=== PATIENT | female | born 1955 | race Caucasian/White ===

== ENCOUNTER 2017-01-05 01:05 | Emergency (ER) | payer MEDICARE, MEDICAID ==
[~2017-01-05] VITALS: Ht 162.6 cm; Wt 66.8 kg
[~2017-01-05 01:05] MED LIST: ASA325 PO; DIAZ5TAB PO; LORA-303 PO; OMEP1CAP24 PO; OMEP1CAP25 PO; OXYC5TAB72 PO; PHEN-684 PO; SERT100T PO; SIMV20TA4 PO; TEMA30CA PO
[2017-01-05 01:10] VITALS: BP 121/75; PULSE 102; RESP 16; O2SAT 97
--- NOTE | 2017-01-05 01:24 | ED.REPORT ---
HPI-General Illness Date of Service Jan 05, 2017 ED Provider: Dr. Alex Girard M.D. A 61 year old female with a medical history including migraines and pneumonia s/ p left hip surgery presents to the ED with trouble breathing onset ten days ago. Associated symptoms include non-productive cough, wheeze, shortness of breath, pleuritic chest pain, right ear pain, bilateral leg edema, headache ( pressure), and left hip pain after a recent ground level fall. The patient was recently on prednisone, with no relief. Nursing Notes Stated Complaint: MEDICATION/EAR AND LEG PAIN Chief Complaint: General Complaint Nursing Notes Reviewed: Yes Allergies: Coded Allergies: hydrocodone (Verified Allergy, Mild, rash, 01/05/17) ketorolac (Verified Allergy, Mild, restless legs, 01/05/17) amoxicillin (Verified Allergy, Unknown, diarrhea, 03/13/14) Scheduled Aspirin-Expunged Drug, Do Not Renew! (Aspirin-Expunged Drug, Do Not Renew!) 325 Mg Tablet 162 MG PO DAILY Cefuroxime Axetil (Cefuroxime) 500 Mg Tablet 500 MG PO BID Diazepam (Valium) 5 Mg Tablet 5 MG PO BID Lorazepam-Expunged Drug, Do Not Renew! (Lorazepam-Expunged Drug, Do Not Renew!) 1 Mg Tablet 2 MG PO PRN PANIC ATTACKS Omeprazole/Sodium Bicarb 20-1100 mg (Omeprazole/Sodium Bicarb 20-1100 mg) 1 Each Capsule 1 EACH PO DAILYAC Omeprazole/Sodium Bicarb 40-1100 mg (Omeprazole/Sodium Bicarb 40-1100 mg) 1 Each Capsule 1 EACH PO BID Phenazopyridine (Pyridium) 200 Mg Tablet 200 MG PO TIDPC Prednisone (PredniSONE) 20 Mg Tablet 60 MG PO DAILY Sertraline HCl (Zoloft) 100 Mg Tablet 200 MG PO DAILY Simvastatin (Simvastatin) 20 Mg Tablet 20 MG PO PM Temazepam-Expunged Drug, Do Not Renew! (Temazepam-Expunged Drug, Do Not Renew!) 30 Mg Capsule 30 MG PO HS Scheduled PRN Albuterol HFA (Proair HFA) 8.5 Gm Hfa.aer.ad 2 PUFFS INHALATION Q4H PRN PRN For Cough Benzonatate (Tessalon Perle) 100 Mg Capsule 200 MG PO TID PRN PRN For Cough oxyCODONE (oxyCODONE) 5 Mg Tablet 5 MG PO Q6 PRN PRN For Pain General Time Seen by MD: 01:23 Chief Complaint Breathing problem Hx Obtained From: Patient Arrived By: Walk-in Sudden in Onset?: Yes Onset Occurred: More than a week ago... (10 days) Symptom Duration: Since onset Location: : Chest: Ear right: Head: Hip left Quality: Aching, Painful, Pleuritic, Pressure Severity: Current: Moderate Severity: Maximum: Moderate Pertinent Negative: Relieved by nothing Recent Healthcare: No recent doctor visit Past Medical History Past Medical History Migraines Depression Anxiety Back injury Pneumonia Past Surgical History Left hip surgery Tubal ligation Smoking History Current Every Day Smoker Ambulatory Status Independent Review of Systems + Trouble breathing Full Review of Systems Constitutional: Denies: Fever Ears / Nose / Throat: Reports: Earache right Respiratory: Reports: Non-productive cough, Pleuritic pain, Shortness of breath , Wheezing Cardiovascular: Reports: Chest pain GI: Denies: Diarrhea, Vomiting Musculoskeletal: Reports: Extremity swelling (Bilateral legs), Joint pain ( Left hip) Neurologic: Reports: Headache (Pressure) Complete sys rev & neg: except as marked. Physical Exam Vital Signs Vital Signs Date Time Temp Pulse Resp B/P Pulse Ox O2 Delivery O2 Flow Rate FiO2 01/05/17 04:37 82 20 110/48 95 Room Air 01/05/17 03:52 76 16 106/49 97 Room Air 01/05/17 03:05 91 20 104/58 97 Room Air 01/05/17 02:00 80 16 97 Room Air 01/05/17 01:10 35.4 102 16 121/75 97 Room Air Initial VS: Reviewed Skin: Warm, Dry, No cyanosis Neurologic: Alert, Oriented, Nonfocal Psychiatric: Mood/affect normal, Behavior normal, Normal thought content General/Constitutional: Awake, Alert Head / Eyes: Atraumatic, Normocephalic ENT: Airway patent, Mucous membranes moist Right Ear / Mastoid: Positive: Tympanic memb retracted Left Ear / Mastoid: Positive: Tympanic memb retracted Bilateral TMs dull Respiratory / Chest: Breath sounds = bilat, No respiratory distress Wheezing / Retractions: Positive: Wheezing moderate (Bilateral) Cardiovascular: Heart rate NL, Regular rhythm, Heart sounds NL Abdomen: Soft, Non-tender Lower Extremity / Pelvis / MS: No deformity Left Thigh: Positive: Ecchymosis present (Laterally), Erythema present ( Laterally) Trace edema bilateral lower extremities Interpretation & Diagnostics Lab Results Interpretation Result Diagram: 01/05/17 0250 01/05/17 0250 Test 01/05/17 02:50 White Blood Count 14.4th/mm3 (3.8-10.1) Red Blood Count 4.02mil/mm3 (3.90-5.20) Hemoglobin 12.0g/dL (12.0-15.6) Hematocrit 36.7% (35.0-46.0) Mean Corpuscular Volume 91.3fL (81-100) Mean Corpuscular Hemoglobin 29.9pg (27.0-35.0) Mean Corpuscular Hemoglobin Concent 32.7% (32.0-37.0) Red Cell Distribution Width 13.6% (12.3-15.4) Platelet Count 449bil/L (150-400) Neutrophils (%) (Auto) 51.4% (40-74) Lymphocytes (%) (Auto) 36.2% (14-46) Monocytes (%) (Auto) 9.0% (4-12) Eosinophils (%) (Auto) 3.0% (0-5) Basophils (%) (Auto) 0.1% (0-3) Prothrombin Time 10.0sec (8.1-12.5) Prothromb Time International Ratio 0.94ratio Activated Partial Thromboplast Time 25.2sec (22.8-33.0) Sodium Level 139mEq/L (134-144) Potassium Level 3.5mEq/L (3.5-5.2) Chloride Level 101mEq/L (97-108) Carbon Dioxide Level 21mmol/L (18-29) Blood Urea Nitrogen 16mg/dL (8-27) Creatinine 0.93mg/dL (0.57-1.00) Estimat Glomerular Filtration Rate 87mL/min (>59) Glucose Level 96mg/dL (60-99) Calcium Level 9.6mg/dL (8.5-10.1) Magnesium Level 2.1mg/dL (1.6-2.6) Total Bilirubin 0.2mg/dL (0.0-1.2) Aspartate Amino Transf (AST/SGOT) 31U/L (0-50) Alanine Aminotransferase (ALT/SGPT) 20U/L (0-32) Alkaline Phosphatase 65U/L (25-165) Troponin T 0.010ug/L (0.0-0.011) Pro-B-Type Natriuretic Peptide 494.6pg/mL (0-287) Total Protein 7.1g/dL (6.4-8.4) Albumin 3.8g/dL (3.4-5.0) Procalcitonin 0.03ng/mL (0.00-0.08) Hold Rios Top Tube Received (Received) ECG Interpretation ECG Interpretation: Sinus rhythm rate 80 Probable left atrial enlargement Time: 02:08 Interpreted by: ED physician X-Ray Chest Interpretation Chest Xray Interpretation: Atelectasis bilateral bases Kyphoplasty x2 View: AP & lat Interpretation / Wet Read by: Wet read ED physician X-Ray Interpretation Xray Interpretation: Hip and pelvis without fracture Abundant stool present X-Ray Ordered: Pelvis, Hip left Interpretation / Wet Read by: Wet read ED physician Re-Eval/Medical Decision Med Decision/Clinical Course 61-year-old chronically on Percocet now out of Percocet presents with multiple complaints including a cough sputum production shortness of breath but also hip pain rib pain and requesting replacement narcotics for her prescriptions. That was explained to her in detail and we cannot do that. She will need to obtain those from her primary. As far as her cough she has continued cigarette smoking and COPD as an issue. She was begun empirically with Ceftin along with a brief steroid course and ongoing albuterol. She was advised to quit smoking as a matter first priority. Discharged in stable condition. Source of Hx: Old records Time of Eval: 03:30 Patient Status: Condition improved Re-Evaluation/Progress Note: Discussed with patient x-ray and lab results, diagnosis, and plan for discharge. Follow-up and return to the ER instructions given. Patient agrees with plan for care and all questions were addressed. Counseled Regarding: Diagnosis, Lab results, Need for follow-up, When/why to return to ED Discharge & Departure Shift Change Sign-Out Response to Therapy: Improved Primary Impression: Acute exacerbation of chronic obstructive pulmonary disease Additional Impressions: Chronic pain Chronic pain type: other chronic pain Qualified Code: G89.29 - Other chronic pain Hip pain, left Disposition: Home Discharge Condition All VS Reviewed: Yes Condition: Improved Patient Instructions: Chronic Obstructive Pulmonary Disease (ED) Additional Instructions: Begin Ceftin twice daily. Begin prednisone three tablets daily for a week Tessalon Perles three times daily if needed for cough Drink plenty of fluids and stay hydrated Avoid excessive salt Follow-up with your doctor. We cannot renew prescriptions for Percocet or other narcotics If your doctor feels it is appropriate to give you narcotic pain relievers, they must do so, as other providers, such as emergency rooms, are prohibited. Referrals: Akira Webber MD (PCP) Scribe Attestation Portions of this note were transcribed by Traci Hatfield. I, Dr. Girard, personally performed the history, physical exam, and medical decision-making; I reviewed and confirmed the accuracy of the information in the transcribed note. Signed by: Avery Jackson, 01/05/2017, 05:30 copies to: Akira Webber MD, Christopher W MD Jan 05, 2017 01:24 TRACI HATFIELD Jan 05, 2017 01:47
[2017-01-05] MEDS ORDERED: Albuterol-Ipratropium 3 mL Inhalation Solution NEB ONE (01:50)
[2017-01-05] MEDS ORDERED: Albuterol 2.5 mg/3 mL Inhalation Solution NEB ONE (01:50)
[2017-01-05] MEDS ORDERED: MethylprednisoLONE Sodium Succinate 62.5 mg/mL 2 mL Inj IVPUSH ONE (01:50)
[2017-01-05 02:00] VITALS: PULSE 80; RESP 16; O2SAT 97
[2017-01-05] MEDS ORDERED: Ondansetron 8 mg ODT Tablet PO ONE (02:05)
[2017-01-05] MEDS ORDERED: cefTRIAXone Inj 2,000 MG in Dextrose 5% Minibag Plus 50 ML IV ONE (02:55)
[2017-01-05 02:57] LABS: BASOPHILS % (AUTO) 0.1 % (0-3); Mean Corpuscular Hemoglobin 29.9 pg (27.0-35.0); Mean Corpuscular Volume 91.3 fL (81-100); NEUTROPHILS % (AUTO) 51.4 % (40-74); Platelet Count 449 bil/L (150-400)
[2017-01-05 03:05] VITALS: BP 104/58; PULSE 91; RESP 20; O2SAT 97
[2017-01-05 03:17] LABS: INR 0.94 ratio
[2017-01-05] MEDS ORDERED: PRE20 PO (03:39)
[2017-01-05] MEDS ORDERED: BENZ-12 PO (03:39)
[2017-01-05] MEDS ORDERED: ALBU8.5H2 INHALATION (03:41)
[2017-01-05] MEDS ORDERED: CEFU500T61 PO (03:45)
[2017-01-05 03:52] VITALS: BP 106/49; PULSE 76; RESP 16; O2SAT 97
[2017-01-05 03:57] LABS: Magnesium 2.1 mg/dL (1.6-2.6); TROPONIN T 0.01 ug/L (0.0-0.011)
[2017-01-05 04:37] VITALS: BP 110/48; PULSE 82; RESP 20; O2SAT 95
--- NOTE | 2017-01-05 08:03 | DRSVH ---
PROCEDURE: X-RAY CHEST, TWO VIEWS ([id number]) INDICATIONS: cough/wheeze TECHNIQUE: 2 views of the chest were acquired. COMPARISON: [facility], CR, CHEST 1VW (PORTABLE), 10/21/2015, 16:33. [facility] pital, CT, CT CHEST ABDOMEN PELVIS W CONTRAST, 04/26/2016, 11:44 PM. [facility], CR, LEON ST 2VW, 07/06/2010, 21:25. FINDINGS: Surgical changes and devices: None. Lungs and pleura: Bilateral perihilar infiltrates suspicious for developing pneumonia. No pleural ef fusions or pneumothorax. Mediastinum: Mediastinal contours are normal. Heart size is normal. Bones and chest wall: Compression fractures in the lumbar spine with Vertebroplasties. Soft tissues appear unremarkable. IMPRESSION: Lateral perihilar infiltrate suspicious for developing pneumonia. Dictated by: Lesly Barrios M.D. on 01/05/2017 at 8:00 Approved by: Lesly Barrios M.D. on 01/05/2017 at 8:02
--- NOTE | 2017-01-05 08:06 | DRSVH ---
PROCEDURE: X-RAY PELVIS W/LAT HIP (LT) ([id number]) INDICATIONS: LEG PAIN TECHNIQUE: AP pelvis with lateral view(s) of the left hip(s). COMPARISON: [facility], , L-SPINE 2-3 VIEWS, 07/17/2016, 15:20. [facility], , PELVIS 1 OR 2 VIEWS, 07/17/2016, 15:20. [facility], , PELVIS W/LAT HIP (LT) (PNL), 01/07/2009, 21:01. FINDINGS: Bones: No acute fractures or dislocations. There is non-acute compression fracture and vertebroplas ty at L3. Pelvic ring appears intact. No suspicious bony lesions. Soft tissues: The visualized bowel gas pattern is normal. No suspicious soft tissue calcifications. IMPRESSION: No acute fracture or dislocation. If clinical symptoms persist or clinical suspicion for pathology is high, a repeat examination in 7-10 days, or advanced imaging such as CT or MRI is sugge sted for further evaluation. Dictated by: Lesly Barrios M.D. on 01/05/2017 at 8:02 Approved by: Lesly Barrios M.D. on 01/05/2017 at 8:04
== END 2017-01-05 04:38 | disposition home or self-care (01) ==
LOC: SED 01:05
DX: J44.1 Chronic obstructive pulmonary disease with (acute) exacerbation (principal); G89.29 Other chronic pain; M25.552 Pain in left hip; F17.200 Nicotine dependence, unspecified, uncomplicated; Z79.82 Long term (current) use of aspirin; Z79.899 Other long term (current) drug therapy; Z88.1 Allergy status to other antibiotic agents; Z88.5 Allergy status to narcotic agent; Z88.8 Allergy status to other drugs, medicaments and biological substances; Z87.01 Personal history of pneumonia (recurrent)
CPT/HCPCS: 36415; 71020; 73501; 80053; 83735; 83880; 84145; 84484; 85025; 85610; 85730; 87040; 93005; 94664; 96365; 96375; 99285; J0696; J2930; J7613; J7620

== ENCOUNTER 2017-06-03 15:31 | Inpatient (IN) | payer MEDICARE, MEDICAID ==
[~2017-06-03] VITALS: Ht 162.6 cm; Wt 54.5 kg
[~2017-06-03 15:31] MED LIST changes: +ALBU8.5H2 INHALATION; +BENZ-12 PO; +CEFU500T61 PO; +OXYC-530 PO; -OXYC5TAB72 PO; +PRE20 PO
[2017-06-03 15:35] VITALS: BP 98/63; PULSE 106; O2SAT 98
--- NOTE | 2017-06-03 18:04 | ED.REPORT ---
HPI-Psychiatric Illness Date of Service Jun 03, 2017 ED Provider: Ramiro Phillips DO Pt is a 62 year old female with a history of anxiety, DM, and depression who presents to the ED for altered mental status onset 2 weeks ago. She c/o associated anxiety, insomnia and decreased appetite, stating that she has not ate or slept in several days. Per daughter, the pt had called her yesterday convinced that people are trying to hurt her, and the daughter thinks that the pt is confused and paranoid with possible dementia. The pt has stopped talking all of her medications for no apparent reason including Benzodiazepine. She has not taken her medication in 2 weeks. She most recently presented to [facility] on 05/24/17 for anti-anxiety medication, but she has not been taking them. Per pt, she has boarded up all of her doors and windows and she believes that her phones are tapped. Pt reports suicidal ideation secondary to her fear. Pt denies drug use. Nursing Notes Stated Complaint: CONFUSION Chief Complaint: Psychiatric Complaint Nursing Notes Reviewed: Yes Allergies: Coded Allergies: hydrocodone (Verified Allergy, Mild, rash, 01/05/17) ketorolac (Verified Allergy, Mild, restless legs, 01/05/17) amoxicillin (Verified Allergy, Unknown, diarrhea, 03/13/14) Scheduled Aspirin-Expunged Drug, Do Not Renew! (Aspirin-Expunged Drug, Do Not Renew!) 325 Mg Tablet 162 MG PO DAILY Cefuroxime Axetil (Cefuroxime) 500 Mg Tablet 500 MG PO BID Diazepam (Valium) 5 Mg Tablet 5 MG PO BID Lorazepam-Expunged Drug, Do Not Renew! (Lorazepam-Expunged Drug, Do Not Renew!) 1 Mg Tablet 2 MG PO PRN PANIC ATTACKS Omeprazole/Sodium Bicarb 20-1100 mg (Omeprazole/Sodium Bicarb 20-1100 mg) 1 Each Capsule 1 EACH PO DAILYAC Omeprazole/Sodium Bicarb 40-1100 mg (Omeprazole/Sodium Bicarb 40-1100 mg) 1 Each Capsule 1 EACH PO BID Phenazopyridine (Pyridium) 200 Mg Tablet 200 MG PO TIDPC Prednisone (PredniSONE) 20 Mg Tablet 60 MG PO DAILY Sertraline HCl (Zoloft) 100 Mg Tablet 200 MG PO DAILY Simvastatin (Simvastatin) 20 Mg Tablet 20 MG PO PM Temazepam-Expunged Drug, Do Not Renew! (Temazepam-Expunged Drug, Do Not Renew!) 30 Mg Capsule 30 MG PO HS Scheduled PRN Albuterol HFA (Proair HFA) 8.5 Gm Hfa.aer.ad 2 PUFFS INHALATION Q4H PRN PRN For Cough Benzonatate (Tessalon Perle) 100 Mg Capsule 200 MG PO TID PRN PRN For Cough oxyCODONE (oxyCODONE) 5 Mg Tablet 5 MG PO Q6 PRN PRN For Pain General Time Seen by MD: 18:04 Chief Complaint Other (Altered mental status) Hx Obtained From: Patient, Other family... Arrived By: Walk-in Onset Occurred: More than a week ago... (2 weeks) Symptom Duration: Since onset Severity: Current: No pain currently Severity: Maximum: No pain Recent Healthcare: No recent doctor visit, No recent hospitalization Similar Sx Previous: No Risk-Psychiatric Illness Suicide Risk Stratification Suicide Risk Factors - Adult: No: Alcohol use, Substance abuse RF Statements: Risk factors reviewed Past Medical History Past Medical History Migraines Anxiety Back injury Pneumonia Reports: Diabetes mellitus Reports: Depression Past Surgical History Left hip surgery Reports: Tubal ligation Smoking History Current Every Day Smoker Social History Alcohol Use: Denies alcohol use Drug Use: Denies drug use Other Social History: Good social support, Lives alone Ambulatory Status Independent Review of Systems + Decreased appetite + Paranoia Psychiatric: Reports: Anxiety, Change mental status, Confusion, Insomnia, Suicidal ideation Complete sys rev & neg: except as marked. Physical Exam Initial Vital Signs Vital Signs (First) Date Time Temp Pulse Resp B/P Pulse Ox O2 Delivery O2 Flow Rate FiO2 06/03/17 15:35 37.1 106 98/63 98 Room Air 06/03/17 18:12 20 Initial VS: Reviewed Head / Eyes: Atraumatic, Normocephalic Neck: Supple, Full range of motion Respiratory: Breath sounds normal, Clear to auscultation, No respiratory distress Abdomen / GI: Soft, Non-tender Extremities: Vascular intact, Neuro intact Skin: Warm, Dry, No cyanosis General/Constitutional: Awake, Alert Neurologic: CN II - XII intact Mental Status: Positive: Disoriented to time Oriented to person and place. PSYCHIATRIC: Agitated. She is convinced people are trying to hurt her. She is paranoid and anxious. She talked of wanting to kill herself out of fear. Pt appears to be responding to internal stimuli. Cardiovascular: Regular rhythm, Heart sounds NL Heart Rate / Rhythm: Positive: Tachycardia (106) Interpretation & Diagnostics Lab Results Interpretation Result Diagram: 06/03/17200506/03/172005 Test 06/03/17 20:06 White Blood Count 8.6th/mm3 (3.8-10.1) Red Blood Count 4.50mil/mm3 (3.90-5.20) Hemoglobin 13.1g/dL (12.0-15.6) Hematocrit 39.3% (35.0-46.0) Mean Corpuscular Volume 87.3fL (81-100) Mean Corpuscular Hemoglobin 29.1pg (27.0-35.0) Mean Corpuscular Hemoglobin Concent 33.3% (32.0-37.0) Red Cell Distribution Width 14.6% (12.3-15.4) Platelet Count 250bil/L (150-400) Neutrophils (%) (Auto) 46.9% (40-74) Lymphocytes (%) (Auto) 43.3% (14-46) Monocytes (%) (Auto) 6.6% (4-12) Eosinophils (%) (Auto) 2.6% (0-5) Basophils (%) (Auto) 0.5% (0-3) Sodium Level 141mEq/L (134-144) Potassium Level 3.5mEq/L (3.5-5.2) Chloride Level 105mEq/L (97-108) Carbon Dioxide Level 22mmol/L (18-29) Blood Urea Nitrogen 24mg/dL (8-27) Creatinine 0.85mg/dL (0.57-1.00) Estimat Glomerular Filtration Rate 96mL/min (>59) Glucose Level 84mg/dL (60-99) Calcium Level 9.1mg/dL (8.5-10.1) Total Bilirubin 0.3mg/dL (0.0-1.2) Aspartate Amino Transf (AST/SGOT) 19U/L (0-50) Alanine Aminotransferase (ALT/SGPT) 19U/L (0-32) Alkaline Phosphatase 42U/L (25-165) Total Protein 6.9g/dL (6.4-8.4) Albumin 4.2g/dL (3.4-5.0) Thyroid Stimulating Hormone (TSH) 1.250uIU/mL (0.450-4.500) Hold Rios Top Tube Received (Received) Alcohols < 10mg/dL (0-10) CT Head Interpretation IMPRESSION: Normal for age, source of altered mental status is not seen. Dictated by: Nicolas Calzada M.D. on 06/03/2017 at 20:41 Study: Head CT no contrast Interpretation / Wet Read by: Interpret - Radiologist Re-Eval/Medical Decision Med Decision/Clinical Course 62-year-old female with history of anxiety and possibly schizophrenia presents with progressive paranoia and profound anxiety. Her daughter is convinced that she is not safe. The patient herself admits to being stalked and she also has suicidal ideations. She is cleared medically. She certainly seems to have acute psychosis. There may have been a component of benzodiazepine withdrawal. Valium seemed to help her vital symptoms. She was still profoundly suicidal and psychotic. Dana Yip was unable to see her today. She is voluntary. We are going to observe her in the emergency department and Dana Yip will see her in the morning. Case signed out to Dr. Medina at the conclusion of my shift. Source of Hx: Old records Re-Evaluation/Progress #1: Time of Eval: 19:28 Re-Evaluation/Progress Note: Pt rechecked. Informed of plan for CT and labs. All questions addressed. Re-Evaluation/Progress #2: Time of Eval: 22:07 Re-Evaluation/Progress Note: Pt rechecked. Informed pt's family of plan to hold her until morning so that she can speak with FORENSIC MANAGER. All questions addressed. Consultation #1: Consulted With: sawmill worker Call Returned at: 21:21 Note: Consulted with Dana Yip. Discussed pt's case. She will try to see the pt if there is time. Consultation #2: Consulted With: sawmill worker Call Returned at: 21:55 Note: Consulted with Dana Yip. She will not be able to see the pt tonight and will see the pt tomorrow. Counseled Regarding: Diagnosis, Lab results Discharge & Departure Shift Change Sign-Out Patient Care Transferred: Yes Discussed Complaint(s): Yes Impression: Primary Impression: Acute psychosis Additional Impression: Suicidal ideations Discharge Condition All VS Reviewed: Yes Condition: Stable Referrals: Akira Webber MD (PCP) Care Transferred to: Dr. Medina Care Transferred at: 03:00 Scribe Attestation Portions of this note were transcribed by Stephanie Whitt. I, Dr. Phillips personally performed the history, physical exam and medical decision-making; I reviewed and confirmed the accuracy of the information in the transcribed note. Signed by : Avery Espinal, 06/03/17. copies to: Akira Webber MD, Todd P DO Jun 03, 2017 18:04 Stephanie Lucas Jun 03, 2017 18:09
[2017-06-03 18:12] VITALS: BP 100/74; PULSE 81; RESP 20; O2SAT 98
[2017-06-03 20:21] LABS: BASOPHILS % (AUTO) 0.5 % (0-3); EOSINOPHILS % (AUTO) 2.6 % (0-5); MONOCYTES % (AUTO) 6.6 % (4-12); Mean Corpuscular Hemoglobin 29.1 pg (27.0-35.0); Mean Corpuscular Volume 87.3 fL (81-100); NEUTROPHILS % (AUTO) 46.9 % (40-74); Platelet Count 250 bil/L (150-400)
[2017-06-03 20:33] VITALS: BP 95/61; PULSE 63; RESP 20; O2SAT 96
--- NOTE | 2017-06-03 20:44 | DRSVH ---
PROCEDURE: CT BRAIN WITHOUT CONTRAST ([id number]) INDICATIONS: altered mental status TECHNIQUE: Noncontrast 4.5 mm thick angled axial sections acquired from the foramen magnum to the vertex, with c oronal reformats. COMPARISON: [facility], CT, HEAD WITHOUT CONTRAST, 12/22/2007, 17:19. FINDINGS: Image quality: Excellent. CSF spaces: Basal cisterns are patent. No extra-axial fluid collections. Ventricles are normal in size and shape. Brain: No midline shift. No intracranial masses or hemorrhage. Lara-white matter interface is norm al. Skull and face: Calvarium and visualized facial bones are intact, without suspicious lesions. Sinuses: Visualized sinuses and mastoids are clear. IMPRESSION: Normal for age, source of altered mental status is not seen. Dictated by: Nicolas Calzada M.D. on 06/03/2017 at 20:41 Approved by: Nicolas Calzada M.D. on 06/03/2017 at 20:42
[2017-06-03 23:12] VITALS: BP 113/68; PULSE 85; RESP 19; O2SAT 96
[2017-06-04 04:10] VITALS: BP 105/67; PULSE 69; RESP 16; O2SAT 98
[2017-06-04 09:03] VITALS: BP 98/69; PULSE 57; O2SAT 99
[2017-06-04 16:02] VITALS: BP 101/62; PULSE 80; O2SAT 98
[2017-06-04] MEDS ORDERED: LORA0.5T PO ×2 (19:59→21:15)
[2017-06-04 20:18] VITALS: BP 99/56; PULSE 86; RESP 20; O2SAT 99
[2017-06-04] MEDS ORDERED: Magnesium Hydroxide 10 mL Oral Concentration PO PRN (20:45)
[2017-06-04] MEDS ORDERED: Alum-Mag Hydrox-Simeth 30 mL Suspension PO PRN (20:45)
[2017-06-04] MEDS ORDERED: Benzocaine-Menthol Lozenge 2/Pkg PO PRN (20:45)
[2017-06-04] MEDS ORDERED: LORazepam 1 mg Tablet PO PRN (20:45)
[2017-06-04 20:46] VITALS: BP 99/56; PULSE 86; RESP 20; O2SAT 99
[2017-06-04] MEDS ORDERED: OLANZapine Zydis ODT 5 mg Tablet PO PRN (20:50)
[2017-06-04] MEDS ORDERED: ASPI81TA3 PO (21:15)
[2017-06-04] MEDS ORDERED: SERT100T9 PO (21:15)
[2017-06-04] MEDS ORDERED: FUR20 PO (21:15)
[2017-06-04] MEDS ORDERED: PRAV10TA2 PO (21:15)
[2017-06-04] MEDS ORDERED: RES15 PO (21:15)
[2017-06-04] MEDS ORDERED: POTA10TA12 PO (21:15)
[2017-06-04] MEDS ORDERED: DIAZ10TA3 PO (21:15)
[2017-06-04] MEDS ORDERED: OMEP20CA11 PO (21:15)
--- NOTE | 2017-06-04 22:55 | NUR ---
Admit Note: Pt is 62 yo female brought to the ED by her daughter. Pt is voluntary and is seeking help. Pt has been off of her medications for the last two weeks and has been decompensating from lack of sleep and not eating. Pt was talking about her will and . She had boarded up her windows and doors, paranoid that people were walking through her home and the FBI and police were after her. Pt reports anxiety 03/29, depression "everyday" and high level. Pt denies SI, HI. Pt states she has VH and AH, but said she doesn't hear voices, just memories that keep playing over in her mind. Pt states she is confused. Pt is very fearful and scared, but cooperates. Pt steadies herself along [place] and furniture when walking and says she falls a lot. Pt was admitted to MH unit at 2039 and completed paperwork, was oriented to floor and ate a snack before bed. Pt took her HS meds willingly. Home meds are in pharmacy.
--- NOTE | 2017-06-05 05:23 | NUR ---
ADMIT/NOC OBS [id number] Pt arrived to unit from ED at 2039. Paperwork signed with difficulty. Pt very anxious and paranoid about everything including paperwork and room as well as others on the unit. Needing much redirection to stay on task and to make any decision such as release or visitation options from others. Pt stating she wanted room locked and when staff assured her we are here to keep her safe she said "what if you have to turn away for a second, someone can come in and get me while I sleep. Then I won't be able to sleep if I know that". Pt reassured but still showing discomfort. Pt oriented to unit and reassured multiple times. Asleep 2245. Observed Q15 as ordered.
[2017-06-05 10:15] VITALS: BP 91/58; PULSE 79; RESP 16
[2017-06-05] MEDS: risperiDONE 1 mg Tablet PO SCH ×2 (12:25→20:37)
[2017-06-05] MEDS: Pantoprazole 20 mg ER24 Tablet PO SCH (12:26)
--- NOTE | 2017-06-05 14:44 | HP ---
[address] [address] HISTORY AND PHYSICAL PATIENT: WEI ALDRIDGE : 1955 MR#: [id number] ADMIT: 06/04/2017 JOB ID: [id number] IDENTIFYING DATA: The patient is a 62-year-old female, admitted on a voluntary basis due to increased confusion and paranoia since cessation of medications. CHIEF COMPLAINT: "Everything is just... I am so confused and I have been forever..." HISTORY OF PRESENT ILLNESS: According to review of documentation the patient presented to the emergency department with altered mental status with an onset two weeks ago. The patient reported worsening anxiety, insomnia, and decreased appetite. According to the patient's daughter she has lost approximately 30 pounds in the last month. While in the emergency department she reported having not slept or eaten for several days. According to documents the patient called the patient's daughter and was convinced that people were trying to hurt her and the daughter expressed concern that she may be suffering from dementia. The patient also stopped taking all medications approximately 2-3 weeks ago and, although she presented to [facility] on May 24 and refilled temazepam, she reportedly has not been taking it. The patient reportedly had boarded up her windows and doors believing that her phones were tapped. In the emergency department, the patient reported suicidal ideation due to her fear. While in the emergency department she denied auditory or visual hallucinations but appeared to be responding to internal stimuli during the evaluation. She also denied suicidal thoughts but reported struggling with them in the past. Today the patient is an extremely disorganized historian and reports, "It is too late, me and my whole family. They say I am a bad seed. They are in my blood. I do not want to hurt anyone. The guns and the dogs... I am in a psych gonzalez. Everything I touch and see reminds me of when I was little." The patient said does endorse episodically seeing bugs, but does not report seeing them now, but states if she were to get close to the floor she is sure that she would see them. Regarding hallucinations, she stated, "Probably. I lose focus on reality." She endorsed having depression "forever." Regarding darin, she had difficulty understanding the question and then stated that she did have manic episodes "but then it breaks." She would not say how long these episodes would last. She reported her sleep was "crap" and her appetite was decreased. She reported decreased energy. PAST PSYCHIATRIC HISTORY: Inpatient: "I have been on the 5th or 6th floor" but could not say what facility. Outpatient she is seen by [facility] in [place] and was previously seen by Dr. Webber. She does not remember previous medication trials or her current medications. Past suicide attempts she states she is unsure. She denies a history of deliberate self injurious behavior. PAST MEDICAL HISTORY: History of migraines, diabetes, back injury and possible surgery. There is a report of hip surgery although the patient denies this. She reports a history of multiple head injuries but is unsure whether she has had seizures. CURRENT MEDICATIONS: According to medication reconciliation: Aspirin 81 mg daily, Diazepam 15 mg daily as needed, Furosemide 20 mg daily, Lorazepam 0.5 mg three times daily as needed for anxiety, Omeprazole 20 mg daily, Potassium chloride 10 mEq daily, Pravastatin 10 mg at bedtime, Sertraline 200 mg daily, Temazepam 30 mg at night as needed for insomnia. MEDICATIONS: According to external medication history: Aspirin 81 mg daily. Diazepam 15 mg daily. Furosemide 20 mg daily, thirty day supply, last filled on March 22, 2017. Lorazepam 0.5 mg, 1-2 tablets three times a day, (8 tablets dispensed). Omeprazole 20 mg daily. Potassium chloride 10 mEq daily, last filled on March 22, 2017, 30 day supply. Pravastatin 10 mg daily. Sertraline 100 mg, two tablets daily. Temazepam 30 mg nightly. Gabapentin 300 mg three times a day. Ventolin inhaler one puff every 4 hours as needed. Zostavax vial injected on May 06, 2017, and the Fluarix quad injection on May 06, 2017. ALLERGIES: AMOXICILLIN, HYDROCODONE, AND KETOROLAC. SOCIAL HISTORY: The patient was born in [place] and was unable to say exactly where she was raised. She did state that they moved around quite a bit. She has an 11th grade education with a GED. Regarding employment, she was unable to respond. 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 Regarding number of marriages, she reported at least two, but "I lost count." She does report having two children, at least one of them is a daughter. She reported most recently being in [facility] housing "but I blew it." FAMILY HISTORY: The patient reports "my sister is running around saying she is crazy and I am crazy." She also reports her mother had a "nervous breakdown." She is unsure whether there is a family history of completed suicide. She endorses a family history of alcohol and substance use, but cannot clarify. Regarding family medical history, she states "they are so many that I cannot even count." Regarding history of physical, sexual, or emotional abuse, "I can't remember." LEGAL HISTORY: "All kinds... I can't take care of them because I don't have a living will." SUBSTANCE USE HISTORY: The patient denies all substances and alcohol, and is a daily smoker. LABORATORY FINDINGS: CBC within normal limits. Chemistry panel within normal limits. TSH 1.250. Alcohol level less than 10. Urine tox screen positive for benzodiazepines. Urinalysis showed trace protein and trace blood but otherwise negative. IMAGING: Head CT on June 03, 2017 showed an examination which was normal for age. MENTAL STATUS EXAMINATION: Appearance: The patient is a somewhat unkempt appearing female with tousled blonde dyed hair wearing hospital issue clothing. Behavior: The patient is fidgeting and is essentially in non-stop movement. She is looking everywhere in the room except typically at this loan underwriter. Mood: "I am extremely agitated." Affect: Appeared anxious and on the verge of tears at times. Thought processes: Occasionally goal directed. At other times loose and disorganized and circumstantial. Thought content: She denied suicidal or homicidal ideation. She endorsed auditory and visual hallucinations, but could not clarify other than potentially seeing bugs. Regarding thought insertion, she stated "by music." She denies thought withdrawal or thought broadcasting, but then added "no but it is a confession of your face." She then added at the end "they talk about trees and music and scream and yell." She endorsed both anxiety and depression. Orientation: She was oriented to early May 2017, psych gonzalez, [place]. She had 3/3 object recall at 0 minutes and 0/3 object recall at 3 minutes. She was able spell the word "world" correctly forwards but was unable to respond in reverse. She was able to repeat the phrase "no, ifs, ands, or buts" on two tries and was able to name three objects. Regarding the [place], she was unable to say specifically and stated "there is different routes." She stated the current president was [place]. Attention and concentration: Poor. Insight and judgment: Impaired. Sensorium: Unclear whether the patient is suffering from mild dementia given her level of current disorganization due to unclear cause. IMPRESSION: The patient is a 62-year-old female with a history of anxiety and depression who presents with altered mental status over the last three weeks following discontinuation of medications. The patient does take chronic benzodiazepines and may be going through benzodiazepine withdrawal. There is also some concern whether the patient is experiencing auditory and visual hallucinations and may have experienced paranoia prior to this episode. It is also possible that she is suffering from mild dementia. All of this is difficult to fully ascertain due to her inability to provide details around the chronology of events and her current agitated state. there is no obvious medical cause to account for her altered mental status. The patient is currently requesting to remain in the hospital and is agreeing to take medications. We discussed returning to her previous medications, as well as adding low-dose risperidone for auditory and visual hallucinations, and the patient was agreeable. DSM-IV DIAGNOSES: [place] I: 1. Psychotic disorder, unspecified. 2. Major depression by history. 3. Anxiety disorder, unspecified, by history. [place] II: Deferred. [place] III: See past medical history. [place] IV: Unknown. [place] V: Current Global Assessment of Functioning 25. PLAN: 1. The patient will be admitted to the [facility] and provided a safe and secure environment. 2. The patient will be encouraged to participate with group and milieu therapy. 3. The patient is currently denying suicidal ideation and does not need a one-to-one at this time. 4. The patient will be seen by the treatment team on a daily basis to assess symptoms, side effects, and response to treatment. 5. The patient will be placed on scheduled diazepam 5 mg p.o. t.i.d. 6. The patient will be started on risperidone 1 mg p.o. b.i.d. for psychosis. 7. The patient will have fingerstick blood glucose to assess for diabetes. Given her recent weight loss she may no longer need medication or treatment. 8. Will need to follow up with outside provider regarding psychiatric treatment and possible deterioration. 9. Will continue the patient's other routine medications. 10. Anticipated length of stay is 5-7 days. MTDD
--- NOTE | 2017-06-05 16:34 | NUR ---
Safety Administrator/Counselor S/O: Patient has not come out of her room to complete paperwork or answer any questions. Patient did not participate in group. ED social psychologist Stephanie FRANCISCO. This director underwriter sales will follow up with patient. A: Isolative and paranoid, disorganized, suspicious, poor judgment and poor insight. P: Follow care plan and coordinate with outpatient providers.
--- NOTE | 2017-06-05 16:44 | NUR ---
Observations 0700 to 1900 Pt did not attend community meeting. Pt did not attend recreational activities. Pt ate a snack. Pt appears internally preoccupied and is highly anxious. Pt is seen waving arms randomly. Pt needs. Pt did rest in bed in the afternoon after pacing in room for awhile. Pt maintained behavioral control. Respirations were observed while asleep. Breakfast: 0%. Lunch: 40%. Staff completed 15 min close observations as ordered.
--- NOTE | 2017-06-05 17:53 | NUR ---
Nursing Notes [id number] S: "I don't deserve to have anything else". "It's not funny". "You're going to put me in correction". "I can't turn my back". "Everything is a trigger for me". "It is not safe". O: Patient appears frightened/paranoid, eye constantly darting around. Making many comments about other patients laughing. Speech fragmented, thoughts scattered. Difficulty, completing thoughts. Appears to be responding to internal stimuli. Too disorganized to color-even with staff demonstrating. A: Anxious, paranoid, feelings of doom, disorganized and tangential. P: Monitor for safety and response to treatment. Follow plan of care. Addendum: 06/05/17 at 1756 by JENNY GALVEZ RN PRN's 11:58 Ativan 1 mg po for anxiety 06/29. Patient able to sleep for a short time, not effective once patient awake. 11:58 Zyprexa 10 mg po for anxiety/psychosis. Not effective.
--- NOTE | 2017-06-05 22:23 | NUR ---
NIGHT NURSE NOTE [id number]: Pt was sleeping at the beginning of the shift, then woken for HS meds and offered a snack. Pt agreed and requested a shower. Pt was unsteady when she first woke up, but became more steady on her feet. Pt stated that the people here are friendly and nice to her and even pointed out a male Pt that had been kind to her earlier. Pt appeared less paranoid and anxious than yesterday. Pt returned to her room after her shower. Pt monitored q15 min for safety, location and accountability.
[2017-06-06] MEDS: Pantoprazole 20 mg ER24 Tablet PO SCH (08:57)
[2017-06-06] MEDS: risperiDONE 1 mg Tablet PO SCH (08:57)
[2017-06-06 10:00] VITALS: BP 108/70; PULSE 110; RESP 16
[2017-06-06] MEDS ORDERED: risperiDONE 1 mg Tablet PO ONE (10:55)
--- NOTE | 2017-06-06 12:52 | PCM.PNPSY ---
Subjective Date of Service Jun 06, 2017 Subjective The patient was sitting at a table with a peer, but when asked to come speak with the treatment team became quite anxious. She stated, "In here there's nothing to see, no East, no West, no North, no South...I can't find my bearings...I'm getting really agitated." Patient was oriented to the unit. The patient stated it was May "middle or late," 2016. "Psych gonzalez, [place]." Patient repeated multiple times, "I'm guilty, it's my fault." She further reported, "My door is disrupting everyone." She denied side effects. Sleep: 8 hours Appetite: "I forced it down." Suicidal and homicidal ideation: Denies Auditory hallucinations: reports hearing, "I'm no good for nothing. I'm not worth nothing. I'm a bad seed." Visual hallucinations: reports seeing bugs and other things. Other Psychotic Symptoms: disorganization Anxiety: 06/29 Depression: "over the edge." Current Medications Current Medications Aspirin 81 mg DAILY PO Last administered on 06/06/17 08:57; Admin Dose 81 MG; Start 06/05/17 at 12:10 Atorvastatin Calcium 5 mg HS PO Last administered on 06/05/17 20:37; Admin Dose 5 MG; Start 06/05/17 at 21:00 Diazepam 5 mg TID PO Last administered on 06/06/17 08:57; Admin Dose 5 MG; Start 06/05/17 at 14:30 Furosemide 20 mg DAILY PO Last administered on 06/06/17 08:57; Admin Dose 20 MG ; Start 06/05/17 at 12:10 Lorazepam 1 mg Q4H PRN PO Last administered on 06/05/17 11:58; Admin Dose 1 MG ; Start 06/04/17 at 20:45; Stop 06/06/17 at 11:01; Status DC Nicotine 1 patch DAILY TOPICAL Last administered on 06/06/17 08:56; Admin Dose 1 PATCH; Start 06/05/17 at 08:30 Nicotine Polacrilex 2 mg Q6H PRN BUCCAL Last administered on 06/04/17 22:43; Admin Dose 2 MG; Start 06/04/17 at 22:30 Olanzapine 10 mg HS PO Last administered on 06/04/17 21:59; Admin Dose 10 MG; Start 06/04/17 at 21:00; Stop 06/05/17 at 12:13; Status DC Olanzapine 10 mg Q4H PRN PO Last administered on 06/05/17 11:58; Admin Dose 10 MG; Start 06/04/17 at 20:50; Stop 06/05/17 at 12:13; Status DC Pantoprazole 20 mg 0630 PO Last administered on 06/06/17 08:57; Admin Dose 20 MG; Start 06/05/17 at 12:13 Potassium Chloride 10 meq DAILYWM PO Last administered on 06/06/17 08:57; Admin Dose 10 MEQ; Start 06/05/17 at 12:14 Risperidone 1 mg BID PO Last administered on 06/06/17 08:57; Admin Dose 1 MG; Start 06/05/17 at 12:10; Stop 06/06/17 at 11:01; Status DC Sertraline HCl 100 mg DAILY PO Last administered on 06/06/17 08:57; Admin Dose 100 MG; Start 06/05/17 at 12:10; Stop 06/06/17 at 11:01; Status DC Mental Status Exam Vital Signs Vital Signs Date Time Temp Pulse Resp B/P Pulse Ox O2 Delivery O2 Flow Rate FiO2 06/06/17 10:00 36.0 110 16 108/70 Appearance: Unkept Attitude: Cooperative, Guarded Behavior: Overtly anxious, Tearful Affect: Labile Mood: Depressed, Anxious Thought Process/Associations: Loose, Tangential Speech Production: Normal Speech Rate: Pressured Speech Articulation: Normal Thought Content: Negativistic, Suspicious, Perseveration Danger to Self/Suicidal Ideati: None Danger to Others: None Hallucinations: Auditory (Endorses), Visual (Endorses) Consciousness: Alert, Hyper-vigilant Orientation: Person, Place, Date, Situation Memory: Short Term Memory (Impaired), Compound Coating Machine Offbearer Memory (Impaired) Estimate Intellectual Function: Average Basis for IQ estimate: Word use/vocabulary, Educational history Attention/Concentration & Cogn: Impaired Insight: Limited Judgement: Limited Result Diagram: 06/03/17200506/03/172005 Mental Health Plan The patient is a 62-year-old female with a history of anxiety and depression who presents with altered mental status over the last three weeks following discontinuation of medications. The patient does take chronic benzodiazepines and may be going through benzodiazepine withdrawal. There is also some concern whether the patient is experiencing auditory and visual hallucinations and may have experienced paranoia prior to this episode. It is also possible that she is suffering from mild dementia. All of this is difficult to fully ascertain due to her inability to provide details around the chronology of events and her current agitated state. there is no obvious medical cause to account for her altered mental status. Today, the patient has been more willing to come out of her room but still quite anxious and fearful. We discussed gradually returning sertraline to previous 200mg dose and discussed increasing risperidone for paranoia and hallucinations. The patient was agreeable. [place] I: 1. Psychotic disorder, unspecified. 2. Major depression by history. 3. Anxiety disorder, unspecified, by history. [place] II: Deferred. [place] III: See past medical history. [place] IV: Unknown. [place] V: Current Global Assessment of Functioning 25. Medications Aspirin 81 mg daily, Diazepam 5 mg TID and 5mg TID as needed, Furosemide 20 mg daily, Hydroxyzine 50mg po q4hr prn anxiety/agitation Omeprazole 20 mg daily, Potassium chloride 10 mEq daily, Atorvastatin 10 mg at bedtime, Risperidone 1mg po daily and 2mg po nightly Sertraline 200 mg daily, Temazepam 30 mg at night as needed for insomnia. Treatments 1. The patient will be admitted to the [facility] and provided a safe and secure environment. 2. The patient will be encouraged to participate with group and milieu therapy. 3. The patient is currently denying suicidal ideation and does not need a one-to-one at this time. 4. The patient will be seen by the treatment team on a daily basis to assess symptoms, side effects, and response to treatment. 5. The patient will be placed on scheduled diazepam 5 mg p.o. t.i.d. with 5mg po tid prn. DC lorazepam. 6. The patient will be started on risperidone 1 mg p.o. daily and 2mg nightly for psychosis. 1mg po x1 now. 8. Increase Sertraline to 150mg po daily with additional 50mg to 100mg given today. 9. Will continue the patient's other routine medications. 10. Anticipated length of stay is 7-10 days. 11. The patient will have fingerstick blood glucose to assess for diabetes. Current glucose 96. Given her recent weight loss she may no longer need medication or treatment. 12. Will need to follow up with outside provider regarding psychiatric treatment and possible deterioration. Jamshid Hernandez MD Jun 06, 2017 12:52
--- NOTE | 2017-06-06 16:23 | NUR ---
Phosphoric Acid Supervisor/Counselor S:"In here, there is nothing to see. I can't find my bearings." O: Patient denies any SI or HI, states that she has visual hallucinations in the form of bugs and hairs, auditory hallucinations in the form of voices. Patient rated her anxiety at a 10 and her depression as being "over the edge." A: Patient is internally preoccupied, paranoid, confused, agitated, labile, anxious. P: Follow care plan and coordinate with outpatient providers.
--- NOTE | 2017-06-06 16:47 | NUR ---
Nursing Notes [id number] S: "You just wake up and wake up and wake up". "I need a automotive quality manager-because I am afraid I will hurt someone"-"I know I am". "I am no good-I just am not"! "I deserve to be tortured-I am so tortured in my mind-It is all my fault". "I cant bake that nohemi a cake for his birthday-it is all my fault because I might hurt someone"."It is all going to end". O: Patient continued to isolate in her room, must be encouraged to come to the dining room for meals, but does not linger. Patient reports sleeping off and on last night, but better than she had been recently. Hesitant to take Risperdal and Sertraline but finally agreed. Continues to be paranoid and hopeless/helpless. A: Paranoid, labile, tangential, perseverated, anxious and isolative. P: Monitor for safety and response to treatment. Follow plan of care.
--- NOTE | 2017-06-06 18:21 | NUR ---
Observations [id number] Pt affect and mood was paranoid, labile, anxious, timid and isolative. Pt was emotional, tearful and upset. Pt was in her room most of the shift and came out only briefly a few times. Pt was pleasant, polite and cooperative when approached. Pt maintained behavior throughout the shift. Pt speech was very soft and eye contact was good. Pt attended meals in D.R. and ate 50% of her meals. Pt ate a snack. Pt declined coming to community meeting. Pt attended unit activities in group room and mildly participated. Pt had a short visit from her daughter. Pt was observed every 15 minutes throughout the shift as ordered.
[2017-06-06] MEDS: risperiDONE 2 mg Tablet PO SCH (20:35)
--- NOTE | 2017-06-07 05:49 | NUR ---
Nursing Note Egg Breaking Machine Operator 7pm-7am Patient was asleep in room at start of shift. Refused offer to come out to dining room for evening snack. Endorses anxiety and depression, indicating she just wanted to sleep. Took evening medications without hesitation and went back to sleep. Patient was noted to be asleep at 2000 and through the rest of the night. Pt monitored q 15 minutes for safety, location and accountability.
[2017-06-07] MEDS: Pantoprazole 20 mg ER24 Tablet PO SCH (08:38)
[2017-06-07] MEDS: risperiDONE 1 mg Tablet PO SCH (08:39)
--- NOTE | 2017-06-07 14:46 | NUR ---
Nursing Dayshift: S: "I have hallucinations I guess." O: Patient tearful during interaction. States she is scared and "I don't feel safe". "I feel so confused" when first out of bed this AM. Up and in the dining room for meals eating 10% of breakfast and 70% of lunch. Approachable. Resting in her room after lunch. Med compliant. A: Quiet. Tearful episodes. Confused. P: CPOC. Monitor mood and behavior. Addendum: 06/07/17 at 1703 by ADRIÁN NOBLE RN This afternoon patient c/o increased anxiety and received hydroxyzine 50 mg PO at 1604 without effective relief. Then c/o chest pain. BP 88/67, p-101. Alerted MD and prn Valium 5 mg PO given at 1624 with effective relief per patient. Denies chest pain and anxiety at present. Waiting in the dining room for supper at present.
--- NOTE | 2017-06-07 15:25 | PCM.PNPSY ---
Subjective Date of Service Jun 07, 2017 Subjective The patient reports, "I'm in the right place, they say." The patient makes good eye contact and has very little excess psychomotor activity. this is commented on and she states, "I'm not doing good. Its' more confusing than ever. I can only trust certain people." The patient reported that she had been hospitalized in [place] and had been treated with Depakote (which didn't work) and Haldol (which did). She could not say exactly when this occurred but was definitely less than 10 years ago. The patient was oriented to June 07, 2017. "Psych gonzalez, [facility]." She denied side effects. Sleep: 9 hours "I slept with my clothing on." Appetite: "forcing myself to eat" then commented on gaining too much weight Suicidal and homicidal ideation: Denies Auditory hallucinations: reports "it's all mixed up" but would not answer whether she was experiencing hallucinations Visual hallucinations: "they say it's all this reality." Other Psychotic Symptoms: disorganization but improved Anxiety: "I can't stand this" Depression: "over the top." Current Medications Current Medications Atorvastatin Calcium 5 mg HS PO Last administered on 06/06/17 20:35; Admin Dose 5 MG; Start 06/05/17 at 21:00 Risperidone 1 mg DAILY PO Last administered on 06/07/17 08:39; Admin Dose 1 MG ; Start 06/07/17 at 08:30 Risperidone 1 mg ONCE ONCE PO Last administered on 06/06/17 12:49; Admin Dose 1 MG; Start 06/06/17 at 10:55; Stop 06/06/17 at 11:05; Status DC Risperidone 2 mg HS PO Last administered on 06/06/17 20:35; Admin Dose 2 MG; Start 06/06/17 at 21:00 Sertraline HCl 50 mg ONCE ONCE PO Last administered on 06/06/17 12:49; Admin Dose 50 MG; Start 06/06/17 at 10:55; Stop 06/06/17 at 11:05; Status DC Sertraline HCl 150 mg DAILY PO Last administered on 06/07/17 08:39; Admin Dose 150 MG; Start 06/07/17 at 08:30 Mental Status Exam Appearance: Neat/well groomed Attitude: Cooperative, Guarded Behavior: Overtly anxious Affect: Restricted Mood: Depressed, Anxious Thought Process/Associations: Loose, Tangential Speech Production: Normal Speech Rate: Pressured Speech Articulation: Normal Thought Content: Negativistic, Suspicious, Perseveration Danger to Self/Suicidal Ideati: None Danger to Others: None Hallucinations: Auditory (Endorses vaguely), Visual (Endorses vaguely) Consciousness: Alert, Hyper-vigilant Orientation: Person, Place, Date, Situation Memory: Short Term Memory (Impaired), Senior Living Memory (Impaired) Estimate Intellectual Function: Average Basis for IQ estimate: Word use/vocabulary, Educational history Attention/Concentration & Cogn: Impaired Insight: Limited Judgement: Limited Result Diagram: 06/03/17200506/03/172005 Mental Health Plan The patient is a 62-year-old female with a history of anxiety and depression who presents with altered mental status over the last three weeks following discontinuation of medications. The patient does take chronic benzodiazepines and may be going through benzodiazepine withdrawal. There is also some concern whether the patient is experiencing auditory and visual hallucinations and may have experienced paranoia prior to this episode. It is also possible that she is suffering from mild dementia. All of this is difficult to fully ascertain due to her inability to provide details around the chronology of events and her current agitated state. there is no obvious medical cause to account for her altered mental status. Today the patient is less anxious, more organized, and makes better eye contact. Despite this the patient reports no improvement. We discussed gradually returning sertraline to previous 200mg dose and discussed increasing risperidone for paranoia and hallucinations if needed. The patient was agreeable. I spoke with the patient's daughter who indicated that the patient does have memory problems for the last 2-3 years. She developed deterioration of her symptoms primarily over the last 2-3 weeks with worsening paranoia and disorganization. Union Union I: 1. Psychotic disorder, unspecified. 2. Major depression by history. 3. Anxiety disorder, unspecified, by history. Union II: Deferred. Union III: See past medical history. Union IV: Unknown. Union V: Current Global Assessment of Functioning 25. Medications Aspirin 81 mg daily, Diazepam 5 mg TID and 5mg TID as needed, Furosemide 20 mg daily, Hydroxyzine 50mg po q4hr prn anxiety/agitation Omeprazole 20 mg daily, Potassium chloride 10 mEq daily, Atorvastatin 10 mg at bedtime, Risperidone 1mg po daily and 2mg po nightly Sertraline 200 mg daily, Temazepam 30 mg at night as needed for insomnia. Treatments 1. The patient will be admitted to the [facility] and provided a safe and secure environment. 2. The patient will be encouraged to participate with group and milieu therapy. 3. The patient is currently denying suicidal ideation and does not need a one-to-one at this time. 4. The patient will be seen by the treatment team on a daily basis to assess symptoms, side effects, and response to treatment. 5. The patient will be placed on scheduled diazepam 5 mg p.o. t.i.d. with 5mg po tid prn. DC lorazepam. 6. The patient will be started on risperidone 1 mg p.o. daily and 2mg nightly for psychosis. 1mg po x1 now. 8. Increase Sertraline to 200mg po daily 9. Will continue the patient's other routine medications. 10. Anticipated length of stay is 7-10 days. 11. The patient will have fingerstick blood glucose to assess for diabetes. Given her recent weight loss she may no longer need medication or treatment. 12. Obtain outside records from [facility] if available. Jamshid Hernandez MD Jun 07, 2017 15:25
--- NOTE | 2017-06-07 16:51 | NUR ---
Special Warfare Combatant Crewman/Counselor S:"It's ok but it's not going to last." O: Patient denies any SI or HI, isn't able to clarify about auditory or visual hallucinations, and states her anxiety is over the top. Cannot rate depression. A: Patient continues to be internally preoccupied, paranoid, confused, agitated, labile, anxious. P: Follow care plan and coordinate with outpatient providers
--- NOTE | 2017-06-07 17:03 | NUR ---
Observations [id number] Pt affect and mood was paranoid, anxious, timid and isolative. Pt was emotional and scared. Pt was in her room most of the shift and came out only briefly a few times. Pt was pleasant, polite and cooperative when approached. Pt maintained behavior throughout the shift. Pt speech was very soft and eye contact was good. Pt attended meals in D.R. and ate 10%, 75% and of her meals. Pt ate a snack. Pt attended unit activities and colored with staff while sitting in D.R. Pt was observed every 15 minutes throughout the shift as ordered.
[2017-06-07] MEDS: risperiDONE 2 mg Tablet PO SCH (20:16)
--- NOTE | 2017-06-08 06:31 | NUR ---
Nursing Note Java Development Manager 7pm-7am Patient was out in dining room at start of shift. Took evening medications without hesitation and went to room. Patient was noted to be asleep at 2044 and through the rest of the night. Pt monitored q 15 minutes for safety, location and accountability.
[2017-06-08] MEDS: risperiDONE 1 mg Tablet PO SCH (08:38)
[2017-06-08] MEDS: Pantoprazole 20 mg ER24 Tablet PO SCH (08:38)
--- NOTE | 2017-06-08 10:52 | NUR ---
Nursing Days Pt out eating breakfast appearing fearful and anxious. When asked how she slept she stated "I'm in, I'm out. I'm in, I'm out." At that time she was unable to articulate how she was feeling or thinking. During med pass she told a staff nurse "My focus is worse. I can only focus on one thing at a time. If I read this (menu) it is all my fault. This whole list is my fault.
[2017-06-08 11:24] VITALS: BP 112/67; PULSE 110
--- NOTE | 2017-06-08 13:19 | PCM.PNPSY ---
Subjective Date of Service Jun 08, 2017 Subjective The patient reports that she does not feel like she is doing any better. She did however take a shower, is able to focus on the conversation, is making eye contact nearly continuously, and is not exhibiting significant psychomotor agitation. Despite all of this, she continued to insist she was no better. She reported still feeling guilty for others' actions. She did report that "words don't come to me when they should." She reported that this has been going on for some time. Regarding auditory hallucinations she stated, "I hear people talking the nighttime. The patient reported hearing people talk on the telephone with no telephone was present. The things go through the units and the pain." The patient denies side effects. Sleep: 8.75 hours Appetite: Low, the patient does not like feeling watched. Suicidal and homicidal ideation: Endorses passive suicidal ideation with no plan or intent. Auditory hallucinations: As above Visual hallucinations: Unable to answer Other Psychotic Symptoms: Disorganization, thought blocking. Anxiety: "With all the triggers they start my triggers." Depression: "Sure, I'm depressed, I've been depressed all my life." Current Medications Current Medications Risperidone 1 mg DAILY PO Last administered on 06/08/17 08:38; Admin Dose 1 MG ; Start 06/07/17 at 08:30 Risperidone 2 mg HS PO Last administered on 06/07/17 20:16; Admin Dose 2 MG; Start 06/06/17 at 21:00 Sertraline HCl 150 mg DAILY PO Last administered on 06/07/17 08:39; Admin Dose 150 MG; Start 06/07/17 at 08:30; Stop 06/07/17 at 15:48; Status DC Sertraline HCl 200 mg DAILY PO Last administered on 06/08/17 08:38; Admin Dose 200 MG; Start 06/08/17 at 08:30 Mental Status Exam Vital Signs Vital Signs Date Time Temp Pulse Resp B/P Pulse Ox O2 Delivery O2 Flow Rate FiO2 06/08/17 11:24 36.6 110 112/67 Appearance: Neat/well groomed Attitude: Cooperative, Guarded Behavior: Overtly anxious Affect: Restricted Mood: Depressed, Anxious Thought Process/Associations: Goal Directed Speech Production: Normal Speech Rate: Normal Speech Articulation: Normal Thought Content: Negativistic, Suspicious, Perseveration Danger to Self/Suicidal Ideati: None Danger to Others: None Hallucinations: Auditory (as above), Visual (Endorses vaguely) Consciousness: Alert, Hyper-vigilant Orientation: Person, Place, Date (May "this year"), Situation Memory: Short Term Memory (Impaired), [facility] Memory (Impaired) Estimate Intellectual Function: Average Basis for IQ estimate: Word use/vocabulary, Educational history Attention/Concentration & Cogn: Impaired Insight: Limited Judgement: Limited Result Diagram: 06/03/17200506/03/172005 Mental Health Plan The patient is a 62-year-old female with a history of anxiety and depression who presents with altered mental status over the last three weeks following discontinuation of medications. The patient does take chronic benzodiazepines and may be going through benzodiazepine withdrawal. There is also some concern whether the patient is experiencing auditory and visual hallucinations and may have experienced paranoia prior to this episode. It is also possible that she is suffering from mild dementia. All of this is difficult to fully ascertain due to her inability to provide details around the chronology of events and her current agitated state. there is no obvious medical cause to account for her altered mental status. According to family, the patient has had memory problems for the last 2-3 years; she developed deterioration of her symptoms primarily over the last 2-3 weeks with worsening paranoia and disorganization. Today the patient is less anxious, more organized, and makes better eye contact. Despite this the patient reports no improvement and "I feel like I'm worse." The patient was encouraged to attend relaxation group but she stated it would worsen her anxiety. Given possible dementing process will continue with current medications and allowed to stabilize prior to any further increases. The patient is not currently reporting active suicidal ideations and does not need a 1:1. Helmetta Helmetta I: 1. Psychotic disorder, unspecified. 2. Major depression by history. 3. Anxiety disorder, unspecified, by history. 4. Rule out Natanael. neurocognitive disorder Helmetta II: Deferred. Helmetta III: See past medical history. Helmetta IV: Unknown. Helmetta V: Current Global Assessment of Functioning 35. Medications Aspirin 81 mg daily, Diazepam 5 mg TID and 5mg TID as needed, Furosemide 20 mg daily, Hydroxyzine 50mg po q4hr prn anxiety/agitation Omeprazole 20 mg daily, Potassium chloride 10 mEq daily, Atorvastatin 10 mg at bedtime, Risperidone 1mg po daily and 2mg po nightly Sertraline 200 mg daily, Temazepam 30 mg at night as needed for insomnia. Treatments 1. [facility] and provided a safe and secure environment. 2. The patient is encouraged to participate with group and milieu therapy. 3. Thepatient is currently reporting passive suicidal ideation but is denying active suicidal ideation and is agreeing to notify staff should she need help. As such she does not need a one-to-one at this time. 4. The patient is seen by the treatment team on a daily basis to assess symptoms , side effects, and response to treatment. 5. Continue diazepam 5 mg p.o. t.i.d. with 5mg po tid prn. 6. Continue risperidone 1 mg p.o. daily and 2mg nightly for psychosis. Consider further increase if auditory hallucinations persist 7. Attempted to obtain records, but none available per evaluation and treatment center. 8. Continue Sertraline to 200mg po daily 9. Continue the patient's other routine medications. 10. Anticipated length of stay is 7-10 days. 11. We patient will have fingerstick blood glucose to assess for diabetes. Given her recent weight loss she may no longer need medication or treatment. Jamshid Hernandez MD Jun 08, 2017 13:19
--- NOTE | 2017-06-08 15:37 | NUR ---
Telemarketing Representative/Counselor S:"I hurt her. It's all my fault." O: Patient did not rate SI or HI, did not rate AVH, anxiety or depression. A: Patient continues to be anxious, paranoid, suspicious, disheveled and nonsensical. P: Follow care plan and coordinate with outpatient providers.
--- NOTE | 2017-06-08 18:48 | NUR ---
Obs Dayshift Pt spent most of the morning out in the milieu, very little to no movement. Appeared very anxious, eyes watching peers very closely. Stating that she was very scared, and panicking about sitting out around people and that if she didn't follow the rules it would cause bad things to happen. Very tearful, sad, anxious. Good ADL's, Good meals
[2017-06-08] MEDS: risperiDONE 2 mg Tablet PO SCH (20:22)
--- NOTE | 2017-06-08 22:05 | NUR ---
NIGHT NURSE NOTE [id number]: Pt has been mostly in her room during the beginning of the shift, coming out for HS meds and snack. Pt talked with staff about being confused and worried. Pt was able to talk about her day and her conversations through the day. Pt is still wringing hands and tearful when talking. Pt went to bed at 2115. Pt monitored q15 min for location, safety, and accountability. Addendum: 06/09/17 at 0545 by KIA BURKS RN Pt slept through the night, 7+ hours. Pt monitored q15 min for location, safety, and accountability.
[2017-06-09] MEDS: Pantoprazole 20 mg ER24 Tablet PO SCH (08:26)
[2017-06-09] MEDS: risperiDONE 1 mg Tablet PO SCH (08:26)
--- NOTE | 2017-06-09 15:07 | PCM.PNPSY ---
Subjective Date of Service Jun 09, 2017 Subjective The patient is better groomed and is noted to be coming out of her room more however she states that she is worse than she was when she came in and that she is "confused with life in general." The patient is able to make eye contact throughout the interview, does not demonstrate psychomotor agitation, is somewhat tearful when talking about her loss of function over the last few years. She stated that she believed that she had been in the hospital for 2 weeks. She is unsure when her memory issues started. The patient expressed concern regarding her youngest child and reported significant guilt "feeling responsible for everything." When her level of functioning was reviewed with the patient at the time of admission she did indicate that she was improved over that state. The patient reported that she also had difficulty reading papers in her patient handbook. The patient appears to have worked on a number of lists but would not show them to this script writer. Sleep: 7+ hours per staff, "I don't feel rested." Appetite: The patient reports that she would eat well if "I take a long time to do it." Suicidal and homicidal ideation: Passive suicidal ideation without intent or plan. Denies homicidal ideation. Auditory hallucinations: Denies Visual hallucinations: Denies Other Psychotic Symptoms: Perseveration and thought disorganization. Anxiety: "Up and goes off the chart and then down and then up and goes off the chart and goes down..." She repeated this several times. Depression: "It's worse" Current Medications Current Medications Sertraline HCl 200 mg DAILY PO Last administered on 06/09/17t 08:27; Admin Dose 200 MG; Start 06/08/17 at 08:30 Mental Status Exam Appearance: Neat/well groomed Attitude: Cooperative, Guarded Behavior: Overtly anxious Affect: Restricted Mood: Depressed, Anxious Thought Process/Associations: Goal Directed Speech Production: Normal Speech Rate: Normal Speech Articulation: Normal Thought Content: Negativistic, Suspicious, Perseveration Danger to Self/Suicidal Ideati: None Danger to Others: None Hallucinations: Auditory (Denies), Visual (Denies) Consciousness: Alert, Hyper-vigilant Orientation: Person, Place, Situation Memory: Short Term Memory (Impaired), [facility] Memory (Impaired) Estimate Intellectual Function: Average Basis for IQ estimate: Word use/vocabulary, Educational history Attention/Concentration & Cogn: Impaired Insight: Limited Judgement: Limited Result Diagram: 06/03/17200506/03/172005 Mental Health Plan The patient is a 62-year-old female with a history of anxiety and depression who presents with altered mental status over the last three weeks following discontinuation of medications. The patient does take chronic benzodiazepines and may be going through benzodiazepine withdrawal. There is also some concern whether the patient is experiencing auditory and visual hallucinations and may have experienced paranoia prior to this episode. It is also possible that she is suffering from mild dementia. All of this is difficult to fully ascertain due to her inability to provide details around the chronology of events and her current agitated state. there is no obvious medical cause to account for her altered mental status. According to family, the patient has had memory problems for the last 2-3 years; she developed deterioration of her symptoms primarily over the last 2-3 weeks with worsening paranoia and disorganization. Today the patient is dressed and groomed appropriately, less anxious, more organized, and makes better eye contact. Despite this, the patient continues to report "I feel worse." When her admission status and current status were reviewed including lack of current hallucinations, lack of psychomotor agitation , ability to carry on conversation, ability to make eye contact, the patient indicated that she was better than admission. As the patient appears to made significant improvement in the last 5 days and there is the presence of possible dementing process, will continue with current medications and allow to stabilize prior to any further increases. The patient is not currently reporting active suicidal ideations and does not need a 1:1. Fingerstick blood glucose 84 and 96 today indicating no need for diabetic medication. Given her recent weight loss she may no longer need medication or treatment for diabetes. Colbert Colbert I: 1. Psychotic disorder 2. Major depression by history. 3. Anxiety disorder, unspecified, by history. 4. Rule out Natanael. neurocognitive disorder Colbert II: Deferred. Colbert III: See past medical history. Colbert IV: Unknown. Colbert V: Current Global Assessment of Functioning 35. Medications Aspirin 81 mg daily, Diazepam 5 mg TID and 5mg TID as needed, Furosemide 20 mg daily, Hydroxyzine 50mg po q4hr prn anxiety/agitation Omeprazole 20 mg daily, Potassium chloride 10 mEq daily, Atorvastatin 10 mg at bedtime, Risperidone 1mg po daily and 2mg po nightly Sertraline 200 mg daily, Temazepam 30 mg at night as needed for insomnia. Treatments 1. [facility] and provided a safe and secure environment. 2. The patient is encouraged to participate with group and milieu therapy. 3. The patient is currently reporting passive suicidal ideation but is denying active suicidal ideation and is agreeing to notify staff should she need help. As such she does not need a one-to-one at this time. 4. The patient is seen by the treatment team on a daily basis to assess symptoms , side effects, and response to treatment. 5. Continue diazepam 5 mg p.o. t.i.d. with 5mg po tid prn. 6. Continue risperidone 1 mg p.o. daily and 2mg nightly for psychosis. Consider further increase if thought disorganization persists 7. Attempted to obtain records, but none available per evaluation and treatment center. 8. Continue Sertraline to 200mg po daily 9. Continue the patient's other routine medications. 10. Anticipated length of stay is 7-10 days. Jamshid Hernandez MD Jun 09, 2017 15:07
--- NOTE | 2017-06-09 17:04 | NUR ---
NURSE NOTE DAY Mood: "I get so panicked." Endorses significant anxiety and panic, exacerbated by being out in the milieu. Endorses some depression. Affect: Anxious. Behavior: Out in milieu watching baseball in the morning. Out for meals. Otherwise, pt isolated in room much of shift. Thought Content/Process: "I feel like I can feel other peoples misery. I'm afraid I'm making it worse when Im out there. I need to shield my face so they don't see me." Delusions of guilt. Pt expresses that she feels confused. "It feels like I've been here an eternity but the doctor says it's only been five days." Perseverates about schedule/admission paperwork. Denies HI. Vague SI with no plan. Vague AH. Denies VH. PRN/NURS Notes: Blood glucose 96 at 1140, 93 at 1630. Showered at 1100. Per Dr. Hernandez, plan is to DC early next week. Addendum: 06/09/17 at 1810 by PASCUAL SUN RN At 1800 pt reported anxiety 02/27 and requested "something" for the anxiety. Explained the difference between diazepam and hydroxyzine to pt and pt eledted to take diazepam 5 mg PRN.
--- NOTE | 2017-06-09 17:51 | NUR ---
[facility] Day Shift Pt maintained behavioral control throughout the shift. Pt affect appears flat/blunt. Pt appears hyper vigilant, suspicious. Pt is hesitant to engage with staff and peers, but is appropriate when active on the unit. Pt able to request basic unit amenities with some prompting (shower, food, toiletries, etc). Pt spends most of the shift resting in her room, only entering the dining room to attend meals and request amenities from staff. Pt attended all meals and ate approx 80% of all meals.
[2017-06-09] MEDS: risperiDONE 2 mg Tablet PO SCH (20:29)
--- NOTE | 2017-06-09 23:01 | NUR ---
Pt has stayed in her room for the majority of the shift, coming out for snack and HS medications. Pt is soft spoken, timid, worried and anxious. Pt went to bed at 2145. Pt monitored q 15 min for safety, location, and accountability
[2017-06-10] MEDS: Pantoprazole 20 mg ER24 Tablet PO SCH (08:21)
[2017-06-10] MEDS: risperiDONE 1 mg Tablet PO SCH (08:22)
--- NOTE | 2017-06-10 10:37 | NUR ---
Interaction Pt had previously stated that she was "afraid" of the dog. Pt later approached therapy dog on her own and was interacting with dog and it's handler. Pt seems more interactive, calmer. When questioned if she thinks having the dog here helped, she responded "It did help."
--- NOTE | 2017-06-10 16:04 | NUR ---
Nurses PRN Patient requested and received Vistaril 50mg for anxiety,will assess response.
[2017-06-10 18:00] VITALS: BP 113/79; PULSE 107; RESP 18
--- NOTE | 2017-06-10 18:40 | NUR ---
Obs Dayshift Pt is scared, sad, isolating. States that she doesn't deserve to be receiving help and should leave so that someone else can use her spot. Hopeless, depressed. Pt is very quiet, polite, anxious. Easily overwhelmed. Needs encouragement often. Good ADL's, Good meals
[2017-06-10] MEDS: risperiDONE 2 mg Tablet PO SCH (21:56)
--- NOTE | 2017-06-10 23:18 | PCM.PNPSY ---
Subjective Date of Service Jun 10, 2017 Subjective Patient eating 80% of meals. Patient reports, "I did the one thing I didn't want to do. I called my daughter." Patient reports that her daughter wants her to sign her as her DPOA and she is unsure whether she wants to do that. Patient reported that her sister had taken lithium and responded well to it. She reported having a similar illness but could not explain what her symptoms were. Patient reports no side effects but had cogwheeling and dystonia on exam. Patient reports that she has improved but still feels ill. Sleep: 8.25 hours Appetite: okay Suicidal and homicidal ideation: reports passive, no active plan or intent, no HI Auditory hallucinations: "of course" but cannot describe them or give any examples Visual hallucinations: denies Other Psychotic Symptoms: disorganization but improved Anxiety: 06/29 Depression: "highly depressed" Current Medications Current Medications Benztropine Mesylate 1 mg BID PO Last administered on 06/10/17t 15:39; Admin Dose 1 MG; Start 06/10/17 at 14:20 Mental Status Exam Appearance: Neat/well groomed Attitude: Cooperative, Guarded Behavior: Overtly anxious Affect: Restricted Mood: Depressed, Anxious Thought Process/Associations: Goal Directed Speech Production: Normal Speech Rate: Normal Speech Articulation: Normal Thought Content: Negativistic, Suspicious, Perseveration Danger to Self/Suicidal Ideati: None Danger to Others: None Hallucinations: Auditory (Endorses), Visual (Denies) Consciousness: Alert, Hyper-vigilant Orientation: Person, Place, Situation Memory: Short Term Memory (Impaired), Applied Anthropologist Memory (Impaired) Estimate Intellectual Function: Average Basis for IQ estimate: Word use/vocabulary, Educational history Attention/Concentration & Cogn: Impaired Insight: Limited Judgement: Limited Mental Health Plan The patient is a 62-year-old female with a history of anxiety and depression who presents with altered mental status over the last three weeks following discontinuation of medications. The patient does take chronic benzodiazepines and may be going through benzodiazepine withdrawal. There is also some concern whether the patient is experiencing auditory and visual hallucinations and may have experienced paranoia prior to this episode. It is also possible that she is suffering from mild dementia. All of this is difficult to fully ascertain due to her inability to provide details around the chronology of events and her current agitated state. there is no obvious medical cause to account for her altered mental status. According to family, the patient has had memory problems for the last 2-3 years; she developed deterioration of her symptoms primarily over the last 2-3 weeks with worsening paranoia and disorganization. Today the patient is dressed and groomed appropriately, less anxious, more organized, and makes better eye contact. She reports that she is better but still not well. Patient is objectively improved. She is able to have a fairly normal conversation focused on real-world concerns. As the patient appears to made significant improvement in the last 6 days and there is the presence of possible dementing process, will continue with current medications and allow to stabilize prior to any further increases. The patient reports that her sister received lithium and this may be an augmenting option if she does not make further improvements. Will treat dystonia with benztropine. The patient is not currently reporting active suicidal ideations and does not need a 1:1. Fingerstick blood glucose has been in the normal range. [place] I: 1. Psychotic disorder 2. Major depression by history. 3. Anxiety disorder, unspecified, by history. 4. Rule out major neurocognitive disorder [place] II: Deferred. [place] III: See past medical history. [place] IV: Unknown. [place] V: Current Global Assessment of Functioning 35. Medications Aspirin 81 mg daily, Diazepam 5 mg TID and 5mg TID as needed, Furosemide 20 mg daily, Hydroxyzine 50mg po q4hr prn anxiety/agitation Omeprazole 20 mg daily, Potassium chloride 10 mEq daily, Atorvastatin 10 mg at bedtime, Risperidone 1mg po daily and 2mg po nightly Sertraline 200 mg daily Benztropine 1mg po bid Temazepam 30 mg at night as needed for insomnia. Treatments 1. The patient is admitted to the [facility] and provided a safe and secure environment. 2. The patient is encouraged to participate with group and milieu therapy. 3. The patient is currently reporting passive suicidal ideation but is denying active suicidal ideation and is agreeing to notify staff should she need help. As such she does not need a one-to-one at this time. 4. The patient is seen by the treatment team on a daily basis to assess symptoms , side effects, and response to treatment. 5. Continue diazepam 5 mg p.o. t.i.d. with 5mg po tid prn. 6. Continue risperidone 1 mg p.o. daily and 2mg nightly for psychosis. Consider further increase if thought disorganization persists 7. Attempted to obtain records, but none available per evaluation and treatment center. 8. Continue Sertraline to 200mg po daily 9. Add benztropine to 1mg po bid 10. Anticipated length of stay is 7-10 days. Jamshid Hernandez MD Jun 10, 2017 19:52
--- NOTE | 2017-06-11 00:17 | NUR ---
Observations 1900 to 0700 Pt attended and participated in wrap up group. Pt ate a snack. Pt spends free time in room. Pt appears anxious and isolative. Pt maintained behavioral control. Pt appeared asleep at 2230 and has remained asleep. Pt respirations were observed when asleep. Staff completed 15 min close observations as ordered.
--- NOTE | 2017-06-11 05:39 | NUR ---
nursing, nights, 11-7 s/o- has appeared to sleep after 0 during q 15 minute assessments. a- no apparent distress. p- monitor behavior/emotional state, quality, times and amount of sleep, use and effect of medication. shanelle
[2017-06-11] MEDS: risperiDONE 1 mg Tablet PO SCH (08:04)
[2017-06-11] MEDS: Pantoprazole 20 mg ER24 Tablet PO SCH (08:04)
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
--- NOTE | 2017-06-11 13:47 | PCM.PNPSY ---
Subjective Date of Service Jun 11, 2017 Subjective Again, the patient reports that she is no better. She is seen while sitting in the day room, neatly groomed and in no apparent distress. She reports that her anxiety is better, "but it will shoot right up as soon as you leave." She also states that her depression is "a little better." When asked about her daughter visiting she reported that her daughter did not visit last night. She reported that the date was the but that she was confused because other people were saying it was the . NB one of the patient boards was mis-marked 06/10/17. She reports that she is having some difficulty with chewing all the food as she only has 1 upper denture. When asked about hallucinations and suicidal ideation she states, "sure, of course." On further examination however, she cannot provide any details and denies any intent to harm herself or others. She did report seeing "leaves" in her room but no other hallucinations. She reports no side effects to medications. On physical examination today there is no dystonia or cogwheeling noted. We discussed the patient's reported memory impairment over the last 2-3 years and her current difficulty with dates and time and discussed using Aricept to help with memory issues and the patient was agreeable. Head CT is normal with no evidence of atrophy. Sleep: 7.5+ hours Appetite: "I know that I am hungry." Suicidal and homicidal ideation: Endorses passive suicidal ideation without plan or intent. Auditory hallucinations: As above no clear hallucinations reported although endorsing. Visual hallucinations: "Leaves" Other Psychotic Symptoms: Thought disorganization Anxiety: better, "but it will shoot right up as soon as you leave." Depression: "A little better" Current Medications Current Medications Benztropine Mesylate 1 mg BID PO Last administered on 06/11/17t 08:04; Admin Dose 1 MG; Start 06/10/17 at 14:20 Mental Status Exam Appearance: Neat/well groomed Attitude: Cooperative, Guarded Behavior: Overtly anxious Affect: Restricted Mood: Depressed, Anxious Thought Process/Associations: Goal Directed Speech Production: Normal Speech Rate: Normal Speech Articulation: Normal Thought Content: Negativistic, Suspicious, Perseveration Danger to Self/Suicidal Ideati: None Danger to Others: None Hallucinations: Auditory (Endorses), Visual (Endorses) Consciousness: Alert, Hyper-vigilant Orientation: Person, Place, Situation Memory: Short Term Memory (Impaired), Care Home Memory (Impaired) Estimate Intellectual Function: Average Basis for IQ estimate: Word use/vocabulary, Educational history Attention/Concentration & Cogn: Impaired Insight: Limited Judgement: Limited Mental Health Plan The patient is a 62-year-old female with a history of anxiety and depression who presents with altered mental status over the last three weeks following discontinuation of medications. The patient does take chronic benzodiazepines and may be going through benzodiazepine withdrawal. There is also some concern whether the patient is experiencing auditory and visual hallucinations and may have experienced paranoia prior to this episode. It is also possible that she is suffering from mild dementia. All of this is difficult to fully ascertain due to her inability to provide details around the chronology of events and her current agitated state. there is no obvious medical cause to account for her altered mental status. According to family, the patient has had memory problems for the last 2-3 years; she developed deterioration of her symptoms primarily over the last 2-3 weeks with worsening paranoia and disorganization. Today the patient is reporting less depression and is groomed appropriately, less anxious, more organized, and continues to make better eye contact. Although initially indicating no change, she now reports that she is better but still "not well" Patient is objectively improved. She is able to have a fairly normal conversation focused on real-world concerns. As the patient appears to made significant improvement in the last week and there is the presence of possible dementing process, will continue with current medications and allow to stabilize prior to any further increases. The patient reports that her sister received lithium and this may be an augmenting option if she does not make further improvements. Dystonia appears to resolved with benztropine. The patient is reporting passive not currently reporting active suicidal ideations and does not need a 1:1. Will check an EKG prior to considering use of Aricept. Fingerstick blood glucose has been in the normal range. [place] I: 1. Psychotic disorder 2. Major depression by history. 3. Anxiety disorder, unspecified, by history. 4. Rule out major neurocognitive disorder [place] II: Deferred. [place] III: See past medical history. [place] IV: Unknown. [place] V: Current Global Assessment of Functioning 35. Medications Aspirin 81 mg daily, Diazepam 5 mg TID and 5mg TID as needed, Furosemide 20 mg daily, Hydroxyzine 50mg po q4hr prn anxiety/agitation Omeprazole 20 mg daily, Potassium chloride 10 mEq daily, Atorvastatin 10 mg at bedtime, Risperidone 1mg po daily and 2mg po nightly Sertraline 200 mg daily Benztropine 1mg po bid Temazepam 30 mg at night as needed for insomnia. Treatments 1. The patient is admitted to the [facility] and provided a safe and secure environment. 2. The patient is encouraged to participate with group and milieu therapy. 3. The patient is currently reporting passive suicidal ideation but is denying active suicidal ideation and is agreeing to notify staff should she need help. As such she does not need a one-to-one at this time. 4. The patient is seen by the treatment team on a daily basis to assess symptoms , side effects, and response to treatment. 5. Continue diazepam 5 mg p.o. t.i.d. with 5mg po tid prn. 6. Continue risperidone 1 mg p.o. daily and 2mg nightly for psychosis. Consider further increase if thought disorganization persists 7. Attempted to obtain records, but none available per evaluation and treatment center. 8. Continue Sertraline to 200mg po daily 9. Continue benztropine 1mg po bid 10. 12-lead EKG, consider Aricept. 11. Anticipated length of stay is 7-10 days. Jamshid Hernandez MD Jun 11, 2017 13:47
--- NOTE | 2017-06-11 18:17 | NUR ---
[facility] Day Shift Pt affect and behavior appears mostly unchanged from previous shifts. Pt maintained behavioral control throughout the shift. Pt affect appears flat/blunt. Pt appears hyper vigilant, suspicious (even more so than noted on previous shifts). Pt appears restless and unable to hold still for extended periods of time. Pt is hesitant to engage with staff and peers, but is appropriate when active on the unit. Pt able to request basic unit amenities with some prompting (shower, food, toiletries, etc). Pt spends most of the shift resting in her room, only entering the dining room to attend meals and request amenities from staff. Pt attended all meals and ate approx 80% of all meals.
--- NOTE | 2017-06-11 18:45 | NUR ---
Superior Court Justice/Counselor: S/O: Patient slept 7.5 hours last night per staff. Patient reports passive thoughts of hurting herself, but contracts for safety. She denies H/I. She also denies auditory and visual hallucinations. Depression and anxiety were not rated. A: Patient is cooperative, anxious, guarded, depressed, limited insight, limited judgment. P: Follow the care plan, coordinate with out-patient providers.
[2017-06-11] MEDS: risperiDONE 2 mg Tablet PO SCH (20:22)
--- NOTE | 2017-06-12 05:57 | NUR ---
Night Nurse Note [id number]: Pt was in bed at the beginning of the shift. Pt slept through the night, 8.5 hrs. Pt monitored q15 min for safety, location and accountability.
[2017-06-12] MEDS: Pantoprazole 20 mg ER24 Tablet PO SCH (08:12)
[2017-06-12] MEDS: risperiDONE 1 mg Tablet PO SCH (08:13)
--- NOTE | 2017-06-12 10:59 | NUR ---
Nursing; Continues quite anxious, fearful, labile and preoccupied with what other's think("excuse me for breathing on you"), and feelings of overwhelm. Feels, "trapped and hopeless". Again she says"I should keep my mouth shut and my head down" which appears to be a theme of her life. "I wish I could just shut it off"(her head) When asked what got her here; "I did. My dtr called me at lunch and needed some advice. I tried but look at me!How can I give advice. They both really need their mother. I tried to hang on and hang on and hang on, but... I didn't know where to turn." Says there are times ,"when i have more clarity and can carry my half of a conversation...Then everything comes in and shuts down and I get really anxious...If I'd been given the right meds years ago I might have had a chance..." She has been out on the unit for meals and snacks but sits folded into herself, watching around her anxiously. Medicated for anxiety w/ Hydroxazine @ 0840 and then with Valium @ 1050 with questionable effect
--- NOTE | 2017-06-12 14:24 | PROG NOTE ---
[address] [address] PROGRESS NOTE PATIENT: WEI ALDRIDGE : 1955 MR#: [id number] ADMIT: 06/04/2017 JOB ID: [id number] DATE: 06/12/2017 CHIEF COMPLAINT: "I get so nervous out there, I feel like people are judging me." This is per patient report. HISTORY OF PRESENT ILLNESS: As stated above, the patient was seen in her room. She appeared to be quite anxious, tearful, and openly discussed her difficulties with some interactions on the unit. She indicates that she feels that people are looking at her and judging her based on her physical appearance. She reflected her previous history of struggles with anxiety, dating back to cement mason. She identified significant struggles in the past including features of panic, generalized anxiety disorder, and also characteristic features of social phobia. 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 She reviewed her previous history of multiple marriages, two children, and stated that she is ashamed of her current status. She was rather self-deprecating throughout the course of conversation and made various commentaries about her physical appearance. In review of her current status of medications, Dr. Hernandez has titrated her doses of Zoloft to 200 mg daily. She is on Risperdal 1 mg q.a.m. and 2 mg q.h.s. and diazepam 5 mg t.i.d. with noted long-term history of dependence. She also is receiving doses of temazepam 30 mg q.h.s. I have suggested the possibility of utilization of BuSpar versus doses of benzodiazepines due to the patient's significant difficulties with confusion, disorientation, and suspected manifestations of dependency. The patient is agreeable to initiate trials. Introduction will follow. OBJECTIVE: On mental status exam, the patient as noted above was seen isolative to her room. She appeared to be quite anxious on approach. Her speech is pressured at times. Her mood is highly anxious. Her affect is elevated. Her thought process shows evidence of racing thoughts, some loose and disorganized thinking. Her thought content: She denied any evidence of current suicidal or homicidal ideation. She appears to be hypervigilant if not paranoid. She does admit to delusional references throughout and has experienced hallucinations of recent, including seeing falling leaves in her room. She was alert, oriented to time and place. Attention and concentration are poor. Insight and judgment are poor. PHYSICAL EXAM: Vital signs, current: Temperature is 36.2, pulse 107, respirations 18, BP 113/79. MEDICATION REVIEW: Includes: 1. Cogentin 1 mg b.i.d. 2. Zoloft 200 mg daily. 3. Risperdal 1 mg q.a.m., 2 mg q.h.s. 4. Valium 5 mg t.i.d. p.r.n. and scheduled 5 mg t.i.d. 5. Lipitor 5 mg q.h.s. 6. Potassium 10 mEq daily. 7. Protonix 20 mg q.a.m. 8. Lasix 20 mg daily. 9. Restoril 30 mg p.r.n. at h.s. 10. Hydroxyzine 50 mg q.4 h. p.r.n. She reportedly did receive orders for Aricept last evening, but this was discontinued. ASSESSMENT: [place] I. 1. Psychotic disorder, not otherwise specified. 2. Major depressive disorder, recurrent type, with psychotic features. 3. Anxiety disorder, not otherwise specified. 4. Panic disorder with agoraphobic features. 5. Generalized anxiety disorder. 6. Social anxiety disorder. 7. Rule out major neurocognitive disorder, not otherwise specified. [place] II. Deferred. [place] III. History of hypertension. [place] IV. Stressors are noted for disturbance of coping, limited followup outpatient care. [place] V. Global Assessment of Functioning current 25. PLAN: 1. Recommendations for discontinuation of p.r.n. doses of Valium with tapering doses to follow. 2. Recommendations for introduction of BuSpar 15 mg b.i.d., with further titration to follow. 3. Continuation of all other medications as noted.
[2017-06-12] MEDS: BusPIRone 15 mg Dividose Tablet PO SCH ×2 (14:33→20:20)
[2017-06-12 16:31] VITALS: BP 91/50; PULSE 86; RESP 16
--- NOTE | 2017-06-12 18:01 | NUR ---
Stevedoring Superintendent/Counselor S:"She talks a lot of languages." O: Patient denies SI or HI, states that she sometimes hears and sees things. States that she always has depression and of course has anxiety. A: Patient is cooperative, anxious, guarded, depressed, limited insight, limited judgment. P: Follow care plan, coordinate with outpatient providers.
[2017-06-12] MEDS: risperiDONE 2 mg Tablet PO SCH (20:22)
--- NOTE | 2017-06-12 22:51 | NUR ---
NURSING NOTE [id number] Mood: "I'm not good" Affect: nervous, persevatory Behavior: pt. mostly isolating to room, expressed she feels overwhelmed and fearful to spend too much time around her peers as she is worried "I'm not doing the right thing." Pt. is preoccupied with the notion of what the rules are and worried she isn't following them. Pt. tearful when given reassurance by staff. Pt. spent much of our conversation comparing herself to other patients on the unit and expressing a desire that she could "be more like them." Thought processes: anxious, depressed, vague SI w/no plan or intent
--- NOTE | 2017-06-13 06:12 | NUR ---
Nursing Note Telemarketing Supervisor 11pm-7am Patient in room asleep at start of shift. She was noted to be in bed asleep at 2100 and through the rest of the night. Pt monitored q 15 minutes for safety, location and accountability. Addendum: 06/13/17 at 1512 by PASCUAL SUN RN VS: 90/60, 54 at 0715; 88/58, 66 at 0936. Withheld potassium, furosemide, and Cogentin due to low blood pressure.
[2017-06-13] MEDS: Pantoprazole 20 mg ER24 Tablet PO SCH (07:58)
[2017-06-13] MEDS: BusPIRone 15 mg Dividose Tablet PO SCH ×2 (08:00→20:57)
[2017-06-13] MEDS: risperiDONE 1 mg Tablet PO SCH (08:00)
--- NOTE | 2017-06-13 14:26 | PROG NOTE ---
[address] [address] PROGRESS NOTE PATIENT: WEI ALDRIDGE : 1955 MR#: [id number] ADMIT: 06/04/2017 JOB ID: [id number] DATE: 06/13/2017 CHIEF COMPLAINT: "I have been on BuSpar before, it did not work as good as the Valium." HISTORY OF PRESENT ILLNESS: As stated above, the patient identified her reluctance to engage in transition from doses of Valium to BuSpar. The patient readily identified that, in the past, she has taken up to 40 mg of Valium in the past on a daily basis and states that she is aware that it is an addictive substance. I have discussed with her my reluctance to continue with current courses of Valium, stating that she has had episodes of confusion, disorientation, and significant difficulties with fall risk in the past. I discussed transition and discontinuation onto doses of BuSpar and also have discussed further titration of her doses of Risperdal due to rigidity of her thought process. She did spend some time discussing with myself her chronic factors of anxiety including worrisome nature, rigidity of thought. 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 She denied any history of bulimia. Nurses have indicated that they were concerned about her blood pressure and pulse rate earlier this morning and withheld her Lasix, and other concerns. She indicated that she did finally eat a meal earlier today and stated that she is experiencing extreme gas. In reviewing further history, I do feel the patient has a long-term addiction status and also underlying eating disorder presentation. I discussed with the treatment team the intent of transition of medications and treatment. Remains on a voluntary basis and potentially if she were to discharge, DMs would be notified for further assessment and review. OBJECTIVE: On mental status exam she was quite irritated with myself with the discontinuation of her Valium; intent to taper and discontinue. Her speech is pressured. Her mood is anxious. Her affect is inappropriate at times. Her thought process shows evidence of some loose and disorganized thinking but improving with decreased doses of benzodiazepines. She identifies her thoughts are racing but she was able to realign with therapeutic coping including tapping and also distraction techniques. Her thought content, she denied any evidence of current suicidal, homicidal ideation. She denied any active hallucinations, delusions at this time. Her insight and judgment are deemed poor. PHYSICAL EXAM: Vital signs, current: Temperature is 36.4, pulse 86, respirations 16, BP 91/50. MEDICATION REVIEW: Includes: 1. Risperdal 1 mg q.a.m., 2 mg q.h.s. 2. Valium 5 mg b.i.d., with an intent to taper and discontinue. 3. BuSpar 15 mg b.i.d. 4. Cogentin 1 mg b.i.d. 5. Zoloft 200 mg daily. 6. Lipitor 5 mg q.h.s. 7. K-Dur 10 mEq daily. 8. Protonix 20 mg q.a.m. 9. Lasix 20 mg daily. 10. Restoril 30 mg q.h.s. 11. Vistaril 50 mg q.4 h. p.r.n. ASSESSMENT: [place] I. 1. Major depressive disorder, recurrent type with psychotic features. 2. Generalized anxiety disorder. 3. Panic disorder without agoraphobia. 4. Eating disorder, not otherwise specified. [place] II. Cluster B personality features. [place] III. History of hypertension. [place] IV. Stressors are noted for chronic misuse of benzodiazepines, chronic mental health issues. [place] V. Global Assessment of Functioning current 30. PLANS: 1. Recommendations for continuation of taper and discontinuation of Valium. 2. Continuation of BuSpar. 3. Titration of Risperdal to 2 mg b.i.d. 4. Consideration of discontinuation of Lasix based on the above presentation of possible underlying eating disorder. 5. The patient was informed that if she were to attempt to sign herself out, consideration of a DMHP evaluation may follow.
--- NOTE | 2017-06-13 17:37 | NUR ---
[facility] Day Shift Pt affect and behavior appears mostly unchanged from previous shifts. Pt maintained behavioral control throughout the shift. Pt affect appears flat/blunt. Pt appears hyper vigilant, suspicious (though less so than noted on previous shifts). Pt appears restless and unable to hold still for extended periods of time. Pt is hesitant to engage with staff and peers, but is more interactive with peers this shift. Pt able to request basic unit amenities with some prompting (shower, food, toiletries, etc). Pt has made attempts to be more active on the unit, and has attended group activities. Pt attended all meals and ate approx 80% of all meals.
--- NOTE | 2017-06-13 17:41 | NUR ---
Rn Palliative/Counselor S:"I'm taking up space that's needed for someone else." O: Patient denies SI or HI, states that she hears and sees things but could not elaborate. Did not rate anxiety or depression. A: Patient continues to be cooperative, anxious, guarded, depressed, limited insight, limited judgment, tearful. P: Follow care plan, coordinate with outpatient providers
[2017-06-13 17:55] VITALS: BP 90/60; PULSE 54; RESP 16
[2017-06-13] MEDS: risperiDONE 2 mg Tablet PO SCH (20:57)
--- NOTE | 2017-06-13 22:06 | NUR ---
NURSING NOTE [id number] Mood: "not good" Affect: anxious, fretful Behavior: pt. mostly isolating to her room this shift. She was hypotensive this a.m. and did tell this advertising copy writer she has not been drinking much while on the unit d/t being worried that she will not make it to the bathroom on time. When asked if she struggles with urgency or frequency, the pt. denied and expressed she was just fearing not being able to make it to her own bathroom and instead having to "use someone else's bathroom and embarrassing myself." Pt's BP this evening was 98/62, taken manually. PRN Vistaril given @ 15:50 for anxiety. Thought processes: anxious, continues to be worried about embarrassing herself in front of her peers or not following unit rules. Denies SI.
[2017-06-13 22:13] VITALS: BP 98/62
--- NOTE | 2017-06-14 05:39 | NUR ---
Nursing Note Director Of Graduate Admissions 11pm to 7am Pt asleep at start of shift and remained asleep for the duration. No issues reported or observed. Monitored pt. with q 15 minute face checks for safety location and accountability.
[2017-06-14] MEDS: Pantoprazole 20 mg ER24 Tablet PO SCH (08:12)
[2017-06-14] MEDS: BusPIRone 15 mg Dividose Tablet PO SCH ×2 (08:42→20:04)
[2017-06-14] MEDS: risperiDONE 2 mg Tablet PO SCH ×2 (08:43→20:05)
--- NOTE | 2017-06-14 13:26 | PROG NOTE ---
[address] [address] PROGRESS NOTE PATIENT: WEI ALDRIDGE : 1955 MR#: [id number] ADMIT: 06/04/2017 JOB ID: [id number] DATE: 06/14/2017 CHIEF COMPLAINT: "I don't know how I would make those appointments." This is per patient report in reference to a tendency in the outpatient sector for chemical dependency treatment, individual therapy and medication management. HISTORY OF PRESENT ILLNESS: As stated above, the patient did identify significant concern and anxiety about potentials of discharge on Wednesday with a plan and intent to follow up with care including chemical dependency treatment based on her significant long-term usage and. Abuse of benzodiazepine; also individual therapy for treatment of factors of anxiety and depression. The patient continues to show significant difficulties with anxiety, some tangential speech, rigidity of thought. She reportedly has received increased doses of Risperdal to 2 mg b.i.d., BuSpar 15 mg b.i.d., Cogentin 1 mg b.i.d., Zoloft 200 mg daily, and continuation of Restoril 30 mg q.h.s. I did spend some time this morning discussing with the patient about the intent of discontinuation of benzodiazepines based on her long-term history of addiction. She debated this indicating that she realizes that she has turned to drugs for various uses throughout the years and identified that she notably has had struggles with eating disorder features in the past as well. I have encouraged her to consider looking at individual therapy and also chemical dependency treatment in [place], and the patient states that she would be willing but she is concerned about how she will make it to her appointments. OBJECTIVE: On mental status exam, the patient continues to be quite irritated with a plan and intent to discontinue her doses of benzodiazepines, she showed significant limited insight. She openly identified that she has used and misused benzodiazepines in the past but states that she feels that she has no other options. Her mood is anxious. Her affect is inappropriate. Her thought process shows continuation of difficulties with tangential speech, repetitive concern about her anxieties of life. Her thought content: She denied any evidence of suicidal, homicidal ideation. She admitted to significant sensations of anger and frustration about medications being taken away. She denied any active hallucinations, delusions. She was alert, oriented to time and place. Attention and concentration fleeting. Insight and judgment are poor. PHYSICAL EXAM: Vital signs, current: Temperature is unlisted, BP 98/62. MEDICATION REVIEW: Includes: 1. Risperdal 2 mg b.i.d. 2. Valium 5 mg b.i.d. 3. BuSpar 15 mg b.i.d. 4. Cogentin 1 mg b.i.d. 5. Zoloft 200 mg daily. 6. Lipitor 5 mg q.h.s. 7. K-Dur 10 mEq daily. 8. Protonix 20 mg daily. 9. Lasix 20 mg daily. 10. Restoril 30 mg q.h.s. 11. Vistaril 50 mg q.4 h. p.r.n. ASSESSMENT: [place] I. 1. Major depressive disorder, recurrent type, nonpsychotic. 2. Generalized anxiety disorder. 3. Panic disorder without agoraphobia. 4. Eating disorder, not otherwise specified. 5. Benzodiazepine use disorder, chronic, severe. [place] II. Cluster B personality features. Nov[place] III. History of hypertension. [place] IV. Stressors are noted for chronic misuse of benzodiazepines, chronic mental health issues. [place] V. Global Assessment of Functioning current 30. PLAN: 1. Recommendations for continuation of taper and discontinuation of Valium. 2. Titration of BuSpar to 30 mg b.i.d. 3. Continuation of Risperdal 2 mg b.i.d., Cogentin 1 mg b.i.d. 4. Continuation of Zoloft 200 mg daily. 5. Discontinuation of Restoril with alternatives to be presented including doses of melatonin 5 mg at h.s. p.r.n. and trazodone 50 mg at h.s. 6. Probable discharge on Wednesday with continuation of aftercare including referrals for chemical dependency treatment, individual therapies, and medication management. [facility]
--- NOTE | 2017-06-14 14:06 | NUR ---
Nursing Dayshift: S: "Yes I'm anxious. I'm afraid to go out of my room for coffee." O: Patient acknowledging anxiety with the above comment. Has been out of her room for meals and coffee. Otherwise isolating in her room. Noted to be peeking out into the mercer at times. Encouraged to come out to the dining room for coffee which she did. Good appetite at meals. Had a snack this AM. "Yes" to depression. Denies harmful thoughts. Acknowledges AH "I hear them in here and out there" pointing at her head then around her. Denies VH. A: Timid. Isolative. P: CPOC. Monitor mood and behavior.
[2017-06-14 14:49] VITALS: BP 113/76; PULSE 85; RESP 20
--- NOTE | 2017-06-14 16:18 | NUR ---
Cardiovascular Disease Specialist/Counselor S:"I'm still here." O: Patient reported no SI or HI, auditory or visual hallucinations but did speak to her having spots in her vision but related this to her possible cataracts and not being visual hallucinations. She reported her anxiety was high and depression as a 7/10. Patient slept 7.75+ hours per staff report. Patients mood was anxious. A:Patient appeared to anxious today and to be easily upset with staff when addressed. P:Follow care plan and coordinate with outpatient providers.
--- NOTE | 2017-06-15 06:21 | NUR ---
Nursing Note It Support Analyst 7pm-7am Patient was isolating in room at start of shift. She came out for evening snack and HS meds. Patient was timid and guarded, yet less fearful than prior interactions with this screenplay writer. She sat in dining room through snack time, then returned to room and was noted to be asleep from 2130 and through the remainder of the night. Pt monitored q 15 minutes for safety, location and accountability.
[2017-06-15] MEDS: Pantoprazole 20 mg ER24 Tablet PO SCH ×2 (07:56→08:28)
[2017-06-15] MEDS: BusPIRone 15 mg Dividose Tablet PO SCH ×2 (08:28→20:00)
[2017-06-15] MEDS: risperiDONE 2 mg Tablet PO SCH ×2 (08:29→20:01)
--- NOTE | 2017-06-15 12:52 | NUR ---
Nursing Days Pt presents as anxious but less tearful. Able to hold a conversation. She was out for breakfast and lunch. She reports "I am good" and asked how I was doing. She stated her daughter called her and she always enjoys it when she calls. Taking all medications as scheduled, cooperative with care, increased engagement upon approach.
--- NOTE | 2017-06-15 13:09 | PROG NOTE ---
[address] [address] PROGRESS NOTE PATIENT: WEI ALDRIDGE : 1955 MR#: [id number] ADMIT: 06/04/2017 JOB ID: [id number] DATE: 06/15/2017 CHIEF COMPLAINT: "You think it's going to be easy." This per patient report. HISTORY OF PRESENT ILLNESS: As stated above, the patient did identify a continued level of frustration with myself. She indicated that she continues to be helpless in reference to scheduling and following through with outpatient recommendations of both individual therapy and also chemical dependency treatment. She reportedly is continuing to be somewhat angry and frustrated with the discontinuation of benzodiazepines, noting that today was her final dose of Valium. She notes that she continues to have significant apprehensive worry about the future, about how she will actually make appointments and afford various medications. She was affirmed that she does have current Medicare. We are in the process of making referrals for chemical dependency treatment. Calls will be placed with her daughter to support further facilitation. OBJECTIVE: On mental status exam, she was semi cooperative. She made intermittent eye contact. She is fairly irritable and passive aggressive with her interactions. Her speech is of normal tone, frequency, and volume. Her mood is anxious. Her affect continues to be inappropriate. Her thought process shows no evidence of flight of ideas, loose or disconnected thinking. Thought content: She denied any evidence of current suicidal, homicidal ideation. No evidence of active hallucinations, delusions. She was alert, oriented to time and place. Attention and concentration intact. Insight and judgment are gaining into the need of ongoing care. PHYSICAL EXAMINATION: Vital signs of current: Temperature is 36.1, pulse 85, respirations 20, BP 113/76. MEDICATION REVIEW: Includes Valium 5 mg q.a.m. last dose today, trazodone 50 mg q.h.s., BuSpar 30 mg b.i.d., melatonin 5 mg at h.s. p.r.n., Risperdal 2 mg b.i.d., Cogentin 1 mg b.i.d., Zoloft 200 mg daily, Lipitor 5 mg q.h.s., K-Dur 10 mEq daily, Lasix 20 mg daily. ASSESSMENT: [place] I: 1. Major depressive disorder, recurrent type, with psychotic features, resolved. 2. Generalized anxiety disorder. 3. Panic disorder without agoraphobia. 4. Eating disorder, not otherwise specified. 5. Benzodiazepine use disorder, chronic, severe. [place] II: Cluster B personality features. [place] III: History of hypertension. [place] IV: Stressors are noted for chronic misuse of benzodiazepines, chronic mental health issues, limited insight into the need for sobriety. [place] V: Global Assessment of Functioning of current 35. PLAN: 1. Recommendations for discontinuation of Valium. 2. Continuation of BuSpar, Risperdal, trazodone, Cogentin, and Zoloft for treatment of factors of anxiety. 3. Recommendations for chemical dependency interventions to be provided by [facility] [place] in [place]. Referrals are in process right now. 4. Followup care including individual therapy and medication management as noted. 5. Follow up discharge tomorrow.
--- NOTE | 2017-06-15 17:53 | NUR ---
Obs Dayshift Pt continues to be isolating, anxious, fearful, but less each day from last week. Pt has slightly better eye contact, and is reaching out to family. Pt is planning on a DC this week. Fearful of some peers. Continues to feel like she is not worthy of us taking care of her, or for bother her daughters. Good ALD's, GOod meals
--- NOTE | 2017-06-15 17:53 | NUR ---
Electric Furnace Operator/Counselor S:"I need a drink." O: Patient denies SI or HI, did not confirm or deny auditory or visual hallucinations, stated she was anxious and that she's been depressed since he had her last child. A: Patient is cooperative, anxious, guarded, depressed, limited insight, limited judgment. P: Follow care plan, coordinate with outpatient providers.
--- NOTE | 2017-06-15 21:04 | NUR ---
Evening Nurse Note: Pt has isolated to her room most of the shift, coming out for meals and snack. Pt is respectful to staff, but nervous to be in the milieu. Pt is guarded, hesitant and fearful. Pt went to her room after HS meds. Pt monitored q15 min for location, safety and accountability.
--- NOTE | 2017-06-16 01:29 | NUR ---
Observations 1900 to 0700 Pt ate a snack. Pt mildly social with peers but mostly stays in room. Pt appears highly anxious. Pt maintained behavioral control and showed no signs of abnormal behavior. Pt appeared asleep at 2130 and has remained asleep. Pt respirations were observed when asleep. Staff completed 15 min close observations as ordered.
--- NOTE | 2017-06-16 06:24 | NUR ---
Nursing Note Vb Developer 11pm-7am Patient in room asleep at start of shift. She was noted to be in bed asleep from 2130 until 0400, at which time she was noted to be awake in room. Pt monitored q 15 minutes for safety, location and accountability.
[2017-06-16] MEDS: BusPIRone 15 mg Dividose Tablet PO SCH (07:30)
[2017-06-16] MEDS: risperiDONE 2 mg Tablet PO SCH (07:31)
--- NOTE | 2017-06-16 09:47 | PCM.DIMED ---
Discharge Instructions Date of Service Jun 16, 2017 Dates of Hospitalization Jun 04, 2017 at 20:15 Discharge Diagnosis Discharge Diagnosis Benzodiazepine dependence Benzodiazepine Withdrawal Major Depressive DO Recurrent nonpsychotic Panic DO without agoraphobia Generalized Anxiety DO Eating DO NOS Cluster B traits Diet Discharge Diet: No restrictions Activity Discharge Activity: No restrictions StillClyde DO Jun 16, 2017 09:47
[2017-06-16] MEDS ORDERED: BENZ1TAB7 PO (09:48)
[2017-06-16] MEDS ORDERED: SERT100T9 PO (09:48)
[2017-06-16] MEDS ORDERED: BUSP15TA3 PO (09:48)
[2017-06-16] MEDS ORDERED: MELA5TAB14 PO (09:48)
[2017-06-16] MEDS ORDERED: RISP2TAB21 PO (09:48)
[2017-06-16 09:58] VITALS: BP 115/71; PULSE 78; RESP 16
--- NOTE | 2017-06-16 13:35 | DIS ---
[address] [address] DISCHARGE SUMMARY PATIENT: WEI ALDRIDGE : 1955 MR#: [id number] ADMIT: 06/04/2017 JOB ID: [id number] DIS: 06/16/2017 ADMITTING DIAGNOSES: AXIS I 1. Psychotic disorder, not otherwise specified. 2. Major depressive disorder, recurrent type, nonpsychotic. 3. Anxiety disorder, not otherwise specified. AXIS II Deferred. AXIS III History of hypertension. AXIS IV Unknown. AXIS V Global assessment of functioning of current 25. DISCHARGE DIAGNOSES: AXIS I 1. Benzodiazepine dependence, chronic, severe. 2. Benzodiazepine withdrawal resolved. 3. Major depressive disorder, recurrent type, nonpsychotic. 4. Generalized anxiety disorder. 5. Panic disorder without agoraphobia. 6. Eating disorder, not otherwise specified. AXIS II Cluster B personality features. AXIS III History of hypertension. AXIS IV Stressors are noted for chronic substance use, misuse, significant chronic difficulties with ineffective coping. AXIS V Global assessment of functioning of current 45. REASON FOR ADMISSION: The patient was a 62-year-old female admitted on a voluntary basis with significant altered mental status including confusion and paranoia. During the course of hospitalization, the patient was evaluated by Dr. Hernandez and initiated on Valium due to significant concerns of withdrawal status. This was later tapered and discontinued. Throughout hospital course, the patient did express significant difficulties with recurrent anxiety, requested several agents. There is growing suspicion of underlying dependency and the patient was informed that her Valium and Restoril would be discontinued due to long-term addiction concerns. She was encouraged to look at chemical dependency treatment resources in her community post discharge. Throughout hospital course, the patient was maintained on doses of Zoloft 200 mg daily, tapering doses of Valium which were eventually discontinued and she was initiated on doses of Risperdal due to rigidity of thought. Eventually titrated to 2 mg b.i.d. with usage of Cogentin 1 mg b.i.d. for EPS. The patient did show significant improvement with discontinuation of benzodiazepines, but also revealed significant long-term history of struggles with body image, weight loss and repetitive ineffective coping with noted restricting behaviors in the past. The patient did meet criteria for eating disorder, NOS, and was encouraged to continue to seek out therapies for many of her characteristic features of anxiety, eating disorder and addictions. CONDITION ON THE TIME OF DISCHARGE: On the patient's mental status examination, she was cooperative, polite. She remained mildly dysphoric with open identification that she was not going to be able to deal without having doses of Valium which she had been prescribed for over 20 years. Her speech was of normal tone, frequency and volume. Her mood was highly anxious, but more appropriate. Her thought process showed no evidence of loose or disconnected thinking. No evidence of current distortion of thought process. Thought content: She denied any evidence of suicidal or homicidal ideation. No evidence of active hallucinations, delusions. She was alert, oriented to time, place, situation. Her attention and concentration were improved. Insight and judgment were deemed fair. DISCHARGE PLANS: Include: 1. Followup with [facility] for initiation of individual therapy. 2. Continuation of medication management and also chemical dependency treatment access. 3. Recommendations for continuation of Zoloft 200 mg daily one month supply, no refills. Reason for usage: Antidepressant. 4. Continuation of Risperdal 2 mg b.i.d., one month supply, no refills. Reason for usage: Rigid thought patterns. 5. Continuation of Cogentin 1 mg b.i.d., one month supply, no refills. Reason for usage: EPS. 6. Continuation of furosemide 20 mg daily and K-Dur. No prescriptions given for treatment of hypertension. 7. The patient was highly encouraged to seek out additional chemical dependency treatment resources based on her long-term history of addiction and overlapping of factors of eating disorder. It is felt that the patient is at high risk for further addiction and family members were encouraged to dispose of any addictive medications that were residing in the home environment. I do not feel that the patient warrants future hospitalization if she were to relapse due to her strong suspicion of underlying addictive personality and potential for continuation of seeking out further psychotropic medications. While I have not coded the patient asa malingerer at this time, I do feel that certainly this is an aspect of her current presentation.
--- NOTE | 2017-06-16 15:48 | NUR ---
Discharged 1543 pt signed all paperwork and belongings given discharge to home with daughter
--- NOTE | 2017-06-16 18:34 | NUR ---
Stock Lifter/Counselor: S: "My daughter will come and pick me up." O: Patient slept 6.5 hours last night per staff. Patient denies S/I and H/I. She also denies auditory and visual hallucinations. Depression and anxiety was not rated. Out-patient appointments: Heaven Abreu, counselor [facility], 06/21/17 at 2:00pm and SALO Leonard, medication monitor, [facility], 06/22/17 at 3:00pm. A: Patient is cooperative, hopeful, fair insight, fair judgment. P: Follow the care plan, coordinate with out-patient providers.
== END 2017-06-16 15:43 | disposition home or self-care (01) | DRG 897 ==
LOC: SED 15:31 → MHC 06-04 20:15
PROVIDERS: ADMIT Psychiatry & Neurology Psychiatry; ATTEND Psychiatry & Neurology Psychiatry
DX: F19.239 Other psychoactive substance dependence with withdrawal, unspecified (principal); F33.9 Major depressive disorder, recurrent, unspecified; R45.851 Suicidal ideations; E11.9 Type 2 diabetes mellitus without complications; F03.90 Unspecified dementia, unspecified severity, without behavioral disturbance, psychotic disturbance, mood disturbance, and anxiety; F50.9 Eating disorder, unspecified; F41.1 Generalized anxiety disorder; F41.0 Panic disorder [episodic paroxysmal anxiety]; Z79.82 Long term (current) use of aspirin